=== PATIENT | female | born 1965 | race American Indian/Alaskan Native ===

== ENCOUNTER 2023-04-27 09:45 | Outpatient (REF) | payer OTHER, SELFPAY ==
--- NOTE | ~2023-04-27 | XR_ITS ---
EXAMINATION: XR KNEE, RIGHT XR KNEE AP STANDING CLINICAL INFORMATION: Pain. COMPARISON: Radiographs dated 11/05/2018. TECHNIQUE: Lateral and axial views of the right knee were obtained. AP bilateral standing view of the knees was obtained. FINDINGS: The lateral and medial joint space compartments of the right knee are well-maintained. The right patellofemoral compartment shows mild narrowing laterally. There is mild peripheral osteophyte formation of the medial and patellofemoral joint space compartments. There is mild to moderate narrowing of the medial joint space compartment of the left knee, with peripheral osteophyte formation. The lateral joint space compartment is well-maintained. No fracture or dislocation is seen. There is no right knee joint effusion. No significant varus or valgus configuration is seen bilaterally. XR/XR knee standing BI IMPRESSION: 1. There is mild osteoarthritic change of the medial and patellofemoral joint space compartments of the right knee. 2. There is mild to moderate osteoarthritic change of the medial joint space compartment of the left knee. 3. No fracture, dislocation or joint effusion is noted. 4. There is no significant varus or valgus configuration noted bilaterally.
--- NOTE | ~2023-04-27 | XR_ITS ---
EXAMINATION: XR KNEE, RIGHT XR KNEE AP STANDING CLINICAL INFORMATION: Pain. COMPARISON: Radiographs dated 11/05/2018. TECHNIQUE: Lateral and axial views of the right knee were obtained. AP bilateral standing view of the knees was obtained. FINDINGS: The lateral and medial joint space compartments of the right knee are well-maintained. The right patellofemoral compartment shows mild narrowing laterally. There is mild peripheral osteophyte formation of the medial and patellofemoral joint space compartments. There is mild to moderate narrowing of the medial joint space compartment of the left knee, with peripheral osteophyte formation. The lateral joint space compartment is well-maintained. No fracture or dislocation is seen. There is no right knee joint effusion. No significant varus or valgus configuration is seen bilaterally. XR/XR knee RT 2V IMPRESSION: 1. There is mild osteoarthritic change of the medial and patellofemoral joint space compartments of the right knee. 2. There is mild to moderate osteoarthritic change of the medial joint space compartment of the left knee. 3. No fracture, dislocation or joint effusion is noted. 4. There is no significant varus or valgus configuration noted bilaterally.
== END 2023-04-27 09:46 | disposition home or self-care (01) ==
LOC: HO.HOSX 09:45
PROVIDERS: Visit Provider Orthopaedic Surgery
DX: M23.91 Unspecified internal derangement of right knee (principal)
CPT/HCPCS: 73560; 73565; 99202

== ENCOUNTER 2023-04-27 14:26 | Outpatient (AMB) | payer OTHER, SELFPAY ==
--- NOTE | 2023-04-27 14:27 | MHC.OFFVIS ---
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 Patient reports that she has had pain for quite vaibhav time, denies injury. She has not tried PT, injections or surgery. 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 It started 2-3 months ago. She describes pain with twisting and with dynamic activities that is medial and sharp. [facility] Surgical History (Updated 04/27/23 @ 14:44 by Scarlett Landry CMA) History of bunionectomy of left great toe Hx of abdominoplasty H/O thumb surgery H/O left knee surgery Social History (Updated 04/27/23 @ 14:44 by Scarlett Landry CMA) Current occupational status: employed Current occupation: Administrative Physical Exam Extrem Other: 0-130 TTP medial joint line + Medial Steinmen's Results Reviewed Results Reviewed: I personally reviewed relevant radiographs. Right knee with mild medial joint decrease Left knee medial compartment moderate OA Assessment & Plan Assessment & Plan (1) Internal derangement of right knee: Code(s): M23.91 - Unspecified internal derangement of right knee Plan: Sharp medial sided thom nwith twisting that includes the sensation of catching and has been present for 3 months. She is unable to return to her normal activities. I recommend MRI to assess. Orders: Orders XR knee RT 2V 04/27/23 M25.569 - Pain in unspecified knee MR knee RT wo con 04/27/23 M23.91 - Unspecified internal derangement of right knee XR knee standing BI 04/27/23 M25.569 - Pain in unspecified knee Coding Level of Care Code New Pt Level 4 (38986) Diagnoses Internal derangement of right knee M23.91
== END 2023-04-27 14:50 | disposition home or self-care (01) ==
PROVIDERS: PCP Internal Medicine; Visit Provider Orthopaedic Surgery
DX: M23.91 Unspecified internal derangement of right knee (principal)
CPT/HCPCS: 99203

== ENCOUNTER 2023-06-04 08:31 | Outpatient (AMB) | payer OTHER, SELFPAY ==
--- NOTE | 2023-06-03 13:34 | A.OFFVIS_ITS ---
Intake Intake Visit Reasons: ov- MRI review of right knee Intake Note: Mely is a 57 year old female who presents today for an MRI review of the right knee. Patient reports that she is feeling pain that has not improved. Allergies morphine Allergy (Unknown, Verified 06/04/23 08:36) Hives Sulfa (Sulfonamide Antibiotics) Allergy (Unknown, Verified 06/04/23 08:36) Anaphylaxis HPI ov- MRI review of right knee HPI Details Mely is a 57 year old woman who returns for an MRI review of her right knee pain. She continues to complain of catching and pain in the medial aspect of her knee. She describes pain with twisting and dynamic activities that sharp. Her pain has been present for ~4 months now, and she feels limited in her ADLs. [facility] Surgical History History of bunionectomy of left great toe Hx of abdominoplasty H/O thumb surgery H/O left knee surgery Social History Current occupational status: employed Current occupation: Administrative Review of Systems Const All systems reviewed & are unremarkable except as noted in HPI and below Physical Exam Const General: no acute distress, alert and awake Orientation/consciousness: patient oriented x3 HEENT Head: Yes normocephalic and Yes atraumatic Mouth: moist mucous membranes Eyes General: appearance normal, both eyes and all related structures EOM: EOMs intact bilaterally Chest Other: no audible wheezing. Resp Other: No audible wheezing Effort & Inspection: normal respiratory effort and able to speak in complete sentences Cardio Other: Radial pulse palpable with no rythmic abnormalities Jugular venous distension: no JVD Back/Spine/Pelvis Cervical Spine: normal cervical lordosis Skin General skin exam: turgor normal Rashes: no rashes Neuro General: patient oriented x3 Extrem Other: No effusion FUll ROM + medial Steinmen's TTP medial joint line Psych Appearance: grossly normal Mental Status: mental status grossly normal Speech and movement: Normal speech and movement present Affect: normal affect Attitude: cooperative Results Reviewed Results Reviewed: Tear of the posterior horn of the medial meniscus Mild tricompartmental OA Assessment & Plan Assessment & Plan (1) Tear of medial meniscus of right knee: Code(s): S83.241A - Other tear of medial meniscus, current injury, right knee, initial encounter Plan: This is a 57 yo F with an acute tear of the right medial meniscus. She has been symptomatic for ~4 months. She describes medial joint line pain worse with twisting, sleeping on her side and at the initiation of motion. She is unable to get through her day without pain. I have reviewed her MRI and I recommend right knee arthroscopy. I explained the surgery and the I discussed the risks benefits and alternatives including but not limited to the risk of pain, infection, stiffness, need for further surgery as well as potential medical complications. I described the possibility that her arthritis is more significant than it appears on imaging and that this can prolong and limit full recovery. She expressed understanding and we will proceed forward accordingly. Plan Prepared for Israel Mendes MD by Baldo Estrella, medical esthetician, on 06/04/23 at 8:37 AM, EST. Coding Level of Care Code Est Pt Level 4 (50324) Diagnoses Tear of medial meniscus of right knee S83.241A
== END 2023-06-04 08:59 | disposition home or self-care (01) ==
PROVIDERS: PCP Internal Medicine; Visit Provider Orthopaedic Surgery
DX: S83.241A Other tear of medial meniscus, current injury, right knee, initial encounter (principal)
CPT/HCPCS: 99214

== ENCOUNTER → 2023-06-04 08:31 | Outpatient (BNVA) | payer OTHER, SELFPAY | PROVIDERS: PCP Internal Medicine; Visit Provider Orthopaedic Surgery | DX: S83.241D Other tear of medial meniscus, current injury, right knee, subsequent encounter (principal) | CPT/HCPCS: 99212 ==

== ENCOUNTER 2023-07-09 11:01 | Outpatient (AMB) | payer OTHER, SELFPAY ==
--- NOTE | 2023-07-09 11:11 | A.OFFVIS_ITS ---
Intake Intake Visit Reasons: Preop RT Knee 07/15/23 NE Intake Note: Mely is a 57 year old female who presents today for a pre op appointment for her right knee , 07/15/23 NE. Allergies morphine Allergy (Unknown, Verified 07/09/23 11:11) Hives Sulfa (Sulfonamide Antibiotics) Allergy (Unknown, Verified 07/09/23 11:11) Anaphylaxis HPI Preop RT Knee 07/15/23 NE HPI Details 57-year-old female who presents in the [facility] today for her preoperative history and physical exam prior to a right knee arthroscopy to be performed on 07/15/[address] Israel Mendes. Patient has an allergy history, as follows: -Morphine; hives -Sulfa; anaphylaxis Patient is not currently taking any medication. Patient has no significant medical history. 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[facility] Surgical History History of bunionectomy of left great toe Hx of abdominoplasty H/O thumb surgery H/O left knee surgery Social History Current occupational status: employed Current occupation: Administrative Review of Systems Const All systems reviewed & are unremarkable except as noted in HPI and below Physical Exam Const General: cooperative, healthy appearing and no acute distress Orientation/consciousness: patient oriented x3 HEENT Head: Yes normocephalic and Yes atraumatic Mouth: moist mucous membranes Eyes General: appearance normal, both eyes and all related structures EOM: EOMs intact bilaterally Chest Other: no audible wheezing. Resp Other: No audible wheezing Effort & Inspection: normal respiratory effort and able to speak in complete sentences Cardio Other: Radial pulse palpable with no rythmic abnormalities Jugular venous distension: no JVD Rate: regular rate Peripheral pulses: Peripheral pulses 2+ throughout GI Palpation (GI): Soft to palpation Back/Spine/Pelvis Cervical Spine: normal cervical lordosis Skin General skin exam: turgor normal Lesions: no lesions Rashes: no rashes Neuro General: patient oriented x3 Extrem Other: Right knee: Skin is clean and intact. No effusion FUll ROM + medial Steinmen's TTP medial joint line Psych Appearance: grossly normal Mental Status: mental status grossly normal Speech and movement: Normal speech and movement present Affect: normal affect Attitude: cooperative Assessment & Plan Assessment & Plan (1) Tear of medial meniscus of right knee: Code(s): S83.241A - Other tear of medial meniscus, current injury, right knee, initial encounter Qualifiers: Encounter type: subsequent encounter Meniscus tear of knee type: unspecified type Tear current or old: current Qualified Code(s): S83.241D - Other tear of medial meniscus, current injury, right knee, subsequent encounter Plan Ms. Salcido is a 57-year-old female who presents in the office today for her preoperative history and physical exam prior to a right knee arthroscopy to be performed on 07/15/[address] Israel Mendes. Patient has an allergy history, as follows: -Morphine; hives -Sulfa; anaphylaxis Patient is not currently taking any medication. Patient has no significant medical history. Patient has a surgical history, as follows: -Hx of bunionectomy of left great toe -Hx of abdominoplasty -Hx of right thumb surgery -Hx of left knee surgery Patient has a social history, as follows: -Employment: Administrative I discussed in detail the procedure and what to expect pre and post operatively. We discussed the risks, benefits and alternatives to the surgery as well as the rehabilitation course. The risks; which include, but are not limited to infection, bleeding, nerve injury, ongoing pain, swelling, and stiffness, perioperative risk of injury to bones and soft tissues, and blood clots. I have answered all questions and with their understanding they have consented to move forward with a right knee arthroscopy to be performed on 07/15/[address] Israel Mendes. Post operative medications was sent to the pharmacy, hydrocodone-acetaminophen 5-325 mg PO Q8H PRN, quantity 21 tabs for 7 days, while in the office today. I also sent her a scopalamine patch from preoperative use to prevent nausea. The patient was instructed that she should obtain the prescription prior to surgery but should not consume until after the procedure; as these should only be taken for post operative pain management. Should the patient take these medications prior to surgery a refill will not be sent to the pharmacy until their scheduled refill date. Follow up will be at the post operative appointment on 07/23/2023 at 3:00 pm, or sooner if needed. Kishor is a friend that will be driving her to and from surgery [phone] Medications: New hydrocodone-acetaminophen 5-325 mg Partial Fill upon patient request. 1 tab PO Q8H 7 days PRN 21 tabs 0RF pain scopolamine base 1 patch transdermal Q72H PRN 4 ea 0RF motion sickness Patient Instructions: Scribed by Dee Dumas ophthalmic medical technologist, for Courtney Cordon PA-C on 07/09/2023 at 11:04 am, EST. Coding Level of Care Code Global (11794) Diagnoses Tear of medial meniscus of right knee, current, unspecified tear type, subsequent encounter S83.241D Encounter type: subsequent encounter Meniscus tear of knee type: unspecified type Tear current or old: current
== END 2023-07-09 11:45 | disposition home or self-care (01) ==
PROVIDERS: PCP Internal Medicine; Visit Provider Physician Assistant
DX: S83.241D Other tear of medial meniscus, current injury, right knee, subsequent encounter (principal)
CPT/HCPCS: 99024

== ENCOUNTER → 2023-07-09 11:01 | Outpatient (BNVA) | payer OTHER, SELFPAY | PROVIDERS: PCP Internal Medicine; Visit Provider Physician Assistant | DX: Z01.818 Encounter for other preprocedural examination (principal); S83.241A Other tear of medial meniscus, current injury, right knee, initial encounter | CPT/HCPCS: 99212 ==

== ENCOUNTER 2023-07-15 05:46 | Day surgery (SDC) | payer OTHER, SELFPAY ==
--- NOTE | 2023-07-14 08:42 | P.CONAN_ITS ---
Documented by User: Faviola Harvey NP 07/14/23 08:43 HPI - Anesthesia Eval Consult details Narrative: 57yo F for Right Knee Arthroscopy No significant PMHx provided by ortho [facility] Active Problems Active Problems: All Active Problems (Updated 07/09/23 @ 11:18 by Dee Dumas) Tear of medial meniscus of right knee (Acute) Internal derangement of right knee (Acute) Past Medical History Medical History No pertinent past medical history Surgical History Surgical History Hx of section History of bunionectomy of left great toe Hx of abdominoplasty H/O thumb surgery H/O left knee surgery Social History Social History Patient Tobacco Use Status: Former Tobacco user Quit Date: 26 YRS AGO Use of substances other than those prescribed or required for medical reasons: No Are you DNR?: No Advance Directives: No Advance Directives Information Provided: Yes Current occupational status: employed Current occupation: Administrative Meds Allergies Allergy/AdvReac Type Severity Reaction Status Date / Time morphine Allergy Unknown Hives Verified 07/15/23 06:06 Sulfa (Sulfonamide Allergy Unknown Anaphylaxis Verified 07/15/23 06:06 Antibiotics) Home Medications Medication Instructions Recorded Confirmed Last Taken Type Vitamin B-12 200 mg PO DAILY 07/15/23 07/15/23 Unknown History Vitamin D3 200 mg PO DAILY 07/15/23 07/15/23 Unknown History Assessment and Plan Assessment Anesthesia Assessment: Chart Reviewed Documented by User: Alber Hendrickson MD 07/15/23 07:37 [facility] Past Medical History Medical History No pertinent past medical history Family History Family history of problems with anesthesia: No Surgical History Surgical History Hx of section History of bunionectomy of left great toe Hx of abdominoplasty H/O thumb surgery H/O left knee surgery History of Problems with Anesthesia: No Social History Social History Patient Tobacco Use Status: Former Tobacco user Quit Date: 26 YRS AGO Use of substances other than those prescribed or required for medical reasons: No Are you DNR?: No Advance Directives: No Advance Directives Information Provided: Yes Current occupational status: employed Current occupation: Administrative Meds Allergies Allergy/AdvReac Type Severity Reaction Status Date / Time morphine Allergy Unknown Hives Verified 07/15/23 06:06 Sulfa (Sulfonamide Allergy Unknown Anaphylaxis Verified 07/15/23 06:06 Antibiotics) Home Medications Medication Instructions Recorded Confirmed Last Taken Type Vitamin B-12 200 mg PO DAILY 07/15/23 07/15/23 Unknown History Vitamin D3 200 mg PO DAILY 07/15/23 07/15/23 Unknown History Exam Airway Mallampati Class: II TM Dist: >3cm Neck ROM: Full Loose/Missing/Broken Teeth: No Heart: [id number]+[id number] Lungs: cta b/l Assessment and Plan Assessment Anesthesia Assessment: Anesthesia Plan Discussed Final Anesthetic Review Family History of Problems with Anesthesia: No History of Problems with Anesthesia: No NPO: Yes ASA Class: I Final Preanesthetic Review: No Changes in Pt Med Stat, Meds/Allgs Chart Reviewed , Consent Obtained/Reviewed and Anes Risks/Benef Reviewed Patient Risk: Low Procedure Risk: Low Assessment/Block/Sedation in SS: Assess/Block/Sedation-SS Anesthetic Plan Anesthetic Plan: GA Disposition: Standard PACU
[2023-07-15] VITALS (12 sets, daily range): BP systolic 99–145; BP diastolic 58–83; PULSE 54–66; RESP 12–16; TEMP 36.1–36.6; O2SAT 91–100; BMI 32.2
[2023-07-15] MEDS: Lactated Ringers 1,000 ML 100 ML IVCONT (06:29)
--- NOTE | 2023-07-15 07:19 | MHC.SHP ---
Pre-Procedural Eval Section A - 24 Hr Update-Section A only Date of Service: 07/15/23 The patient is an INPATIENT: No Changes since office visit: No Cold of Flu in the past 2 weeks, No New Medical Problems, No Changes in Medication and No Patient answered all questions The patient has been examined within 24 hours of the surgical procedure. The History & Physical has been completed within 30 days and I have reviewed it.: Yes Section B - Complete if H&P > 30 days Chief Complaint: Other tear of medial meniscus, current injury, rig Allergies: Allergies Allergy/AdvReac Type Severity Reaction Status Date / Time morphine Allergy Unknown Hives Verified 07/15/23 06:06 Sulfa (Sulfonamide Allergy Unknown Anaphylaxis Verified 07/15/23 06:06 Antibiotics) Plan I have reviewed the history and physical and performed a pertinent physical examination on my patient. No changes have occurred unless specified. Time Spent With Patient Time: Total time managing care of this patient today ____ minutes.
--- NOTE | 2023-07-15 08:30 | P.BOP_ITS ---
Brief Operative Note Date of Service: 07/15/23 Pre-op diagnosis: Left knee MMT Left knee mild medial compartment OA Moderate lateral compartment OA Post-op diagnosis: same Procedure: Left knee partial medial meniscectopmy and chondroplasty Surgeon: Israel Mendes MD Anesthesia: GETA and local Was an Customer Service Analyst used for this Procedure?: No Estimated blood loss (mL): 5 Tourniquet time (min): 19 IV fluids (mL): 600 Pathology: none sent Condition: stable Disposition: PACU
[2023-07-15] MEDS: fentaNYL citrate/PF 100 MCG/2 ML VIAL 25 MCG IVPUSH ×3 (08:45→09:10)
[2023-07-15] MEDS: oxyCODONE HCl Immed Release 5 MG TABLET PO (08:55)
--- NOTE | 2023-07-17 16:55 | P.OP_ITS ---
Operative Note Operative Note Date of Service: 07/15/23 Narrative: Date of Service: 07/15/23 Pre-op diagnosis: Left knee MMT Left knee mild medial compartment OA Moderate lateral compartment OA Post-op diagnosis: same Procedure: Left knee partial medial meniscectopmy and chondroplasty Surgeon: Israel Mendes MD Anesthesia: GETA and local Was an Asbestos Siding Installer used for this Procedure?: No Estimated blood loss (mL): 5 Tourniquet time (min): 19 IV fluids (mL): 600 Pathology: none sent Condition: stable Disposition: PACU Procedure in detail: Patient was brought to the operating room placed supine on the arthroscopic table and prepped and draped in standard sterile fashion. A time-out was called to identify proper site proper procedure proper surgeon and IV antibiotics per weight were administered. I began by exsanguinating the limb and insufflating tourniquet to 300 mm Hg. Then made a standard anterolateral stab incision. The knee was insufflated with water and 30 degree arthroscope was placed. There was grade 1 fibrillations of the patella but overall suprapatellar pouch and the gutters were clean. I descended into the medial compartment where I made my medial portal under direct visualization. There was obvious of complex tear of the posterior horn of the medial meniscus. The root was intact and there was grade 2 changes in the tibial plateau. A shaver was used to debride the cartilage fibrillations. I used a combination of biter shaver and cautery to re move unstable portions of the meniscus. Approximately 30% meniscal volume was removed. Once I was satisfied with this the ACL was examined and found to be intact and the lateral compartment was examined. 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 I used a shaver to debride this. The lateral meniscus was intact and normal. I then removed all instrumentation and closed the portals with skin glue. 25 mL of 2% Marcaine with epinephrine was injected into the joint and the surrounding soft tissues. Patient was then placed in sterile dressing extubated brought recovery room stable condition. There were no known complications.
== END 2023-07-15 11:01 | disposition home or self-care (01) ==
PROVIDERS: Visit Provider Orthopaedic Surgery
PROC: (CPT 29870; principal; 2023-07-15 07:30)
DX: S83.241A Other tear of medial meniscus, current injury, right knee, initial encounter (principal); M17.11 Unilateral primary osteoarthritis, right knee; M94.261 Chondromalacia, right knee; X58.XXXA Exposure to other specified factors, initial encounter; Y93.9 Activity, unspecified; Y92.9 Unspecified place or not applicable; Y99.8 Other external cause status; Z88.2 Allergy status to sulfonamides; Z88.5 Allergy status to narcotic agent; Z98.890 Other specified postprocedural states; Z87.891 Personal history of nicotine dependence
CPT/HCPCS: 29881; J0131; J0171; J0690; J1100; J2250; J2405; J2704; J2795; J3010

== ENCOUNTER → 2023-07-15 05:46 | Outpatient (BNV) | payer OTHER, SELFPAY | PROVIDERS: Visit Provider Orthopaedic Surgery | DX: S83.232A Complex tear of medial meniscus, current injury, left knee, initial encounter (principal); M17.12 Unilateral primary osteoarthritis, left knee | CPT/HCPCS: 29881 ==

== ENCOUNTER 2023-07-23 14:56 | Outpatient (AMB) | payer OTHER, SELFPAY ==
--- NOTE | 2023-07-23 15:05 | A.OFFVIS_ITS ---
Intake Intake Visit Reasons: PO RT Knee 07/15/23 NE Intake Note: Mely is a 57 year old female who presents today for a post operative appointment s/p RT Knee 07/15/23 NE. Patient reports she is having pain and has limited ROM. Allergies morphine Allergy (Unknown, Verified 07/23/23 15:06) Hives Sulfa (Sulfonamide Antibiotics) Allergy (Unknown, Verified 07/23/23 15:06) Anaphylaxis HPI PO RT Knee 07/15/23 NE HPI Details 57-year-old female who presents in the o ice today 8 days status post left knee partial medial meniscectomy and chondroplasty, which was performed on 07/15/[address] Mendes. Patient reports severe pain, like having a muscle strain in their calf. She states she has pain all around the knee. She reports increased pain with ROM. Confirms icing and using the gel pads. She confirms the use of Tylenol for the pain. [facility] Medical History No pertinent past medical history Surgical History Hx of section History of bunionectomy of left great toe Hx of abdominoplasty H/O thumb surgery H/O left knee surgery Social History Patient Tobacco Use Status: Former Tobacco user Quit Date: 26 YRS AGO Current occupational status: employed Current occupation: Administrative Review of Systems Const All systems reviewed & are unremarkable except as noted in HPI and below Physical Exam Const General: cooperative, healthy appearing and no acute distress Resp Effort & Inspection: normal respiratory effort and able to speak in complete sentences Cardio Rate: regular rate Peripheral pulses: Peripheral pulses 2+ throughout GI Palpation (GI): Soft to palpation Skin Lesions: no lesions Rashes: no rashes Extrem Other: Left knee: Incision site is clean, dry, and intact. No surrounding erythema or drainage. No signs of infection. Moderate edema. ROM is 0-90 degrees. Calf is supple and non-tender. NVI. Assessment & Plan Assessment & Plan (1) S/P left knee arthroscopy: Onset Date: ~07/15/23 Comment: left knee partial medial meniscectomy and chondroplasty NE Code(s): Z98.890 - Other specified postprocedural states Plan Ms. Salcido is a 57-year-old female who presents in the office today 8 days status post left knee partial medial meniscectomy and chondroplasty, which was performe d on 07/15/[address] Mendes. Patient reports severe pain, like having a muscle strain in their calf. She states she has pain all around the knee. She reports increased pain with ROM. Confirms icing and using the gel pads. She confirms the use of Tylenol for the pain. Patient has an appointment scheduled for PT tomorrow. Information for her PT appointment was provided to the patient while in the office today. A refill for hydrocodone-acetaminophen 5-325 mg PO Q8H PRN for pain. Follow up will be in 3-4 weeks for a ROM check, or sooner if needed. Orders: Orders PT Evaluation and Treatment Today S83.241D - Other tear of medial meniscus, current injury, right knee, subsequent encounter Medications: Refilled hydrocodone-acetaminophen 5-325 mg Partial Fill upon patient request. 1 tab PO Q8H PRN 21 tabs 0RF pain 7 days Patient Instructions: Scribed by Dee Dumas director medical economics, for Courtney Cordon PA-C on 07/23/2023 at EST. Coding Level of Care Code Global (60239) Diagnoses S/P left knee arthroscopy Z98.890
== END 2023-07-23 16:13 | disposition home or self-care (01) ==
PROVIDERS: PCP Internal Medicine; Visit Provider Physician Assistant
DX: Z98.890 Other specified postprocedural states (principal)
CPT/HCPCS: 99024

== ENCOUNTER → 2023-07-23 14:56 | Outpatient (BNVA) | payer OTHER, SELFPAY | PROVIDERS: PCP Internal Medicine; Visit Provider Physician Assistant | DX: Z98.890 Other specified postprocedural states (principal) | CPT/HCPCS: 99212 ==

== ENCOUNTER 2023-08-03 09:34 | Outpatient (REF) | payer OTHER, SELFPAY ==
--- NOTE | ~2023-08-03 | US_ITS ---
EXAMINATION: US VENOUS ULTRASOUND WITH DOPPLER LOWER EXTREMITY, RIGHT CLINICAL INFORMATION: Right knee partial meniscectomy with severe calf pain COMPARISON: None available. TECHNIQUE: Ultrasound of the deep veins is performed from the hip to the calf with compression sonography and color and pulse Doppler assessment. Spectral analysis with color-flow imaging is performed. FINDINGS: There is normal venous compression and respiratory variation and augmented flow. The visualized common femoral vein, superficial femoral vein, profunda femoral vein, popliteal vein, and the trifurcation region shows no evidence of deep venous thrombosis. There is no significant popliteal fossa cyst. The contralateral left common femoral vein appears normal. If the patient's symptoms persist, followup ultrasound in 5 days 7 days might be of value to exclude proximal propagation from a non-visualized calf vein. US/US venous duplex LE RT IMPRESSION: No DVT demonstrated in the right lower extremity.
== END 2023-08-03 09:35 | disposition home or self-care (01) ==
LOC: HO.HMGCX 09:34
PROVIDERS: PCP Internal Medicine; Visit Provider Physician Assistant
DX: S83.421D Sprain of lateral collateral ligament of right knee, subsequent encounter (principal); Z98.890 Other specified postprocedural states
CPT/HCPCS: 93971

== ENCOUNTER 2023-08-11 08:00 | Outpatient (RCR) | payer OTHER, SELFPAY ==
--- NOTE | 2023-08-03 07:54 | MHC.PT.EP ---
[facility] [place] Office [place] Office [place] Office [address] Kayla Ashton [address] [phone] F: [phone] F: [phone] F: [phone] F: [phone] Physical Therapy Plan of Care Date of Evaluation: 08/03/23 Date of Surgery: 07/15/2023 Diagnosis: R knee Assessment: Patient is a 57 year old female presenting to PT s/p R knee on 07/15/2023. She presents today with impairments in pain, ROM, and likely knee strength, and hip strength. Limited evaluation due to experiencing severe gastroc and posterior knee pain. Her surgeon's office was notified and an order for an ultrasound was placed. We will complete the evaluation once the ultrasound is completed and we are cleared to do so. 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 Pt expresses long-term goal of returning to PLOF, and is motivated to work towards this in PT. Clinical presentation today is most consistent with signs and sx associated with s/p R knee with partial medial meniesctomy and chondroplasty and pt will benefit from skilled PT 2 week x 5 weeks to address the following problems and impairments noted upon evaluation: pain, ROM, knee strength, hip strength. These problems limit the patient with the following functional activities: ambulating, stair negotiation, ADLs. The prescribed treatment plan of care is medically necessary. Co-morbidities of none were identified and taken into considerations of plan of care. Pt was educated on HEP, role of PT, prognosis, POC. Frequency and Duration: The patient will be seen 2 x week x 5 weeks Short Term Goals: Pt will demonstrate improved R knee ROM to equal B in 3 weeks. Pt will demonstrate hip MMT strength at least 4/5 in 3 weeks for improved lumbopelvic stability. Pt will demonstrate improved R knee MMT strength to 4+/5 in 3 weeks. Assistant Boys Track Coach Goals: Pt will demonstrate improved LEFI score by 9 points in 4 weeks for improved functional mobility. Pt will demonstrate improved ability to ambulate with min to no pain and good mechanics in 4 weeks for return to PLOF. Pt will demonstrate ability to negotiate stairs with min to no pain or difficulty in 4 weeks for improved access to her home. Treatment Plan: Modalities to reduce pain, spasms and effusion. Manual therapy to restore motion and function. Therapeutic exercise to improve strength and flexibility. Neuromuscular re-education for posture and balance. Therapeutic activities to return to functional activities of daily living. Electronically signed by: Nichole Sánchez, PT, DPT, ATC Please sign and return to therapist. Thank you for your referral.
--- NOTE | 2023-09-10 08:38 | MHC.PT.DC ---
[facility] [place] Office [place] Office [place] Office [address] Ashton [address] [phone] F: [phone] F: [phone] F: [phone] F: [phone] Physical Therapy Discharge Report Diagnosis: R knee Date of Surgery: 07/15/2023 Date of Evaluation: 08/03/23 Date of Discharge: 09/10/23 Treatments to Date: 2 Cancellations to Date: 2 No Shows to Date: 1 Discharge Status: Visit Non-compliance Discharge Summary: Pt no showed her last scheduled appointment and has not returned in >30 days and therefore to be d/c. Electronically signed by: Nichole Sánchez, PT, DPT, ATC Please sign and return to therapist. Thank you for your referral.
== END 2023-09-10 08:38 | disposition home or self-care (01) ==
LOC: HO.PTCHIC 08:00
PROVIDERS: Absent Provider Physician Assistant; PCP Internal Medicine; Visit Provider Orthopaedic Surgery
DX: S83.241D Other tear of medial meniscus, current injury, right knee, subsequent encounter (principal)
CPT/HCPCS: 97110; 97161

== ENCOUNTER 2023-10-02 09:04 | Outpatient (AMB) | payer OTHER, SELFPAY ==
--- NOTE | 2023-10-02 09:23 | A.OFFVIS_ITS ---
Intake Visit Reasons: PO RT Knee 07/15/23 NE Allergies morphine Allergy (Unknown, Verified 07/23/23 15:06) Hives Sulfa (Sulfonamide Antibiotics) Allergy (Unknown, Verified 07/23/23 15:06) Anaphylaxis HPI HPI PO RT Knee 07/15/23 NE: Details: 58-year-old female who presents in the office today 11 weeks status post left knee partial medial meniscectomy and chondroplasty, which was performed on 07/15/[address] Mendes. During the procedure she was found to have moderate osteoarthritis in the medial and lateral compartments. I last saw the patient in the office on 07/23/2023 when she was encouraged to continue to work with physical therapy. She was also given a refill of hydrocodone-acetaminophen 5-325 mg PO Q8H PRN for pain. While in the office today the patient reports having continued medial sided pain in the left knee accompanied by edema. PFSH Medical History No pertinent past medical history Surgical History Hx of section History of bunionectomy of left great toe Hx of abdominoplasty H/O thumb surgery H/O left knee surgery Social History Patient Tobacco Use Status: Former Tobacco user Current occupational status: employed Current occupation: Administrative Review of Systems Const All systems reviewed & are unremarkable except as noted in HPI and below Physical Exam Const General: cooperative, healthy appearing and no acute distress Resp Effort & Inspection: normal respiratory effort and able to speak in complete sentences Cardio Rate: regular rate Peripheral pulses: Peripheral pulses 2+ throughout GI Palpation (GI): Soft to palpation Skin Lesions: no lesions Rashes: no rashes Extrem Other: Left knee: Prior incision site is well approximated and completely healed. No signs of infection. Mild effusion. Edema extending down the left lower extremity to the left ankle. ROM is 0-100 degrees. NVI. Assessment & Plan Assessment & Plan (1) S/P left knee arthroscopy: Onset Date: ~07/15/23 Comment: left knee partial medial meniscectomy and chondroplasty NE Code(s): Z98.890 - Other specified postprocedural states Category: Surgical Plan Ms. Salcido is a 58-year-old female who presents in the office today 11 weeks status post left knee partial medial meniscectomy and chondroplasty, which was performed on 07/15/[address] Mendes. During the procedure she was found to have moderate osteoarthritis in the medial and lateral compartments. I last saw the patient in the office on 07/23/2023 when she was encouraged to continue to work with physical therapy. She was also given a refill of hydrocodone- acetaminophen 5-325 mg PO Q8H PRN for pain. While in the office today the patient reports having continued medial sided pain in the left knee accompanied by edema. A referral for the patient to attend physical therapy was made in the office today. A refill for hydrocodone-acetaminophen 5-325 PO Q8H PRN and a new prescription for celecoxib (Celebrex) 200 mg PO BID were sent to the pharmacy. Follow-up will be in 4-6 weeks, or sooner if needed. Medications: New celecoxib (Celebrex) 200 mg PO BID 30 days 60 caps 0RF Refilled hydrocodone-acetaminophen 5-325 mg Partial Fill upon patient request. 1 tab PO Q8H 7 days PRN 10 tabs 0RF pain Patient Instructions: Scribed by Dee Dumas director medical economics, for Courtney Cordon PA-C on 10/02/2023 at 9:09 am, EST. Coding Level of Care Code Global (83610) Diagnoses S/P left knee arthroscopy Z98.890
== END 2023-10-02 09:18 | disposition home or self-care (01) ==
PROVIDERS: PCP Internal Medicine; Visit Provider Physician Assistant
DX: Z98.890 Other specified postprocedural states (principal)
CPT/HCPCS: 99024

== ENCOUNTER → 2023-10-02 09:04 | Outpatient (BNVA) | payer OTHER, SELFPAY | PROVIDERS: PCP Internal Medicine; Visit Provider Physician Assistant | DX: Z47.89 Encounter for other orthopedic aftercare (principal); Z98.890 Other specified postprocedural states | CPT/HCPCS: 99212 ==

== ENCOUNTER 2024-03-29 10:03 | Outpatient (AMB) | payer OTHER, SELFPAY ==
--- NOTE | 2024-03-29 10:27 | A.OFFVIS_ITS ---
Intake Visit Reasons: OV-Left knee pain Intake Note: Mely is a 58 year old female who presents to the office today for Left knee pain. Patient had left knee on 07/16/23. At last visit pt was referred to PT and given Celebrex. Patient states that she has gone to PT but feels like her pain got worse. She mentions that both of her knees hurt but the left knee is worse. Allergies morphine Allergy (Unknown, Verified 07/23/23 15:06) Hives Sulfa (Sulfonamide Antibiotics) Allergy (Unknown, Verified 07/23/23 15:06) Anaphylaxis HPI HPI OV-Left knee pain: Details: 58-year-old female who presents in the office today for an evaluation of bilateral knee pain. I last saw the patient in the office on 10/02/23 for 11 weeks status post right knee partial medial meniscectomy and chondroplasty, which was performed on 07/15/[address] Mendes. She was referred to physical therapy at that time and a prescription for celecoxib 200 mg PO BID was sent to the pharmacy. A refill for hydrocodone-acetaminophen 5-325 PO Q8H PRN was also provided during that encounter. While in the office today, the patient reports bilateral knee pain, left knee worse than the right knee. She mentions attending the physical therapy session; however, she feels her pain worsens with PT. [facility] Medical History No pertinent past medical history Surgical History Hx of section History of bunionectomy of left great toe Hx of abdominoplasty H/O thumb surgery H/O left knee surgery Social History Patient Tobacco Use Status: Former Tobacco user Current occupational status: employed Current occupation: Administrative Review of Systems Const All systems reviewed & are unremarkable except as noted in HPI and below Physical Exam Const General: cooperative, healthy appearing and no acute distress Resp Effort & Inspection: normal respiratory effort and able to speak in complete sentences Cardio Rate: regular rate Peripheral pulses: Peripheral pulses 2+ throughout GI Palpation (GI): Soft to palpation Skin Lesions: no lesions Rashes: no rashes Extrem Other: Right knee: Normal to inspection. No ecchymosis, erythema, or joint effusion. Pain is located in the anterior knee and runs across medial and lateral joint lines. No tenderness to palpation along the medial or lateral joint lines. Full knee extension and flexion. Crepitus felt with ROM. NVI. Left knee: Normal to inspection. No ecchymosis, erythema, or joint effusion. Pain is located medially. Tenderness to palpation along the medial joint line. No tenderness to palpation along the lateral joint lines. Full knee extension and flexion. Crepitus felt with ROM. NVI. Assessment & Plan Assessment & Plan (1) S/P right knee arthroscopy: Code(s): Z98.890 - Other specified postprocedural states Category: Surgical (2) Tear of medial meniscus of right knee: Code(s): S83.241A - Other tear of medial meniscus, current injury, right knee, initial encounter Category: Medical Qualifiers: Encounter type: subsequent encounter Meniscus tear of knee type: unspecified type Tear current or old: current Qualified Code(s): S83.241D - Other tear of medial meniscus, current injury, right knee, subsequent encounter (3) Internal derangement of right knee: Code(s): M23.91 - Unspecified internal derangement of right knee Category: Medical Plan Ms. Salcido is a 58-year-old female who presents in the office today for an evaluation of bilateral knee pain. I last saw the patient in the office on 10/02/23 for 11 weeks status post right knee partial medial meniscectomy and chondroplasty, which was performed on 07/15/[address] Mendes. She was referred to physical therapy at that time and a prescription for celecoxib 200 mg PO BID was sent to the pharmacy. A refill for hydrocodone-acetaminophen 5-325 PO Q8H PRN was also provided during that encounter. While in the office today, the patient reports bilateral knee pain, left knee worse than the right knee. She mentions attending the physical therapy session; however, she feels her pain worsens with PT. The patient has tried and failed cortisone injection, physical therapy and has a prior history of right knee arthroscopy. We discussed the role of gel injection and the patient would like to proceed with the option. The office will petition the insurance [employer] for gel injection. Follow-up will be pending gel injection approval or denial, or sooner if needed. Orders: Orders XR knee RT 1V Today M25.569 - Pain in unspecified knee XR knee LT 3V Today M25.569 - Pain in unspecified knee Patient Instructions: Scribed by Katie Longoria, medical sales specialist, for Courtney Cordon PA-C on 03/29/24 at 11:17 am EST. Coding Level of Care Code Est Pt Level 3 (26716) Diagnoses S/P right knee arthroscopy Z98.890 Tear of medial meniscus of right knee, current, unspecified tear type, subsequent encounter S83.241D Encounter type: subsequent encounter Meniscus tear of knee type: unspecified type Tear current or old: current Internal derangement of right knee M23.91
== END 2024-03-29 10:42 | disposition home or self-care (01) ==
PROVIDERS: PCP Internal Medicine; Visit Provider Physician Assistant
DX: S83.241D Other tear of medial meniscus, current injury, right knee, subsequent encounter (principal); M23.91 Unspecified internal derangement of right knee
CPT/HCPCS: 99213

== ENCOUNTER 2024-03-29 11:18 | Outpatient (REF) | payer OTHER, SELFPAY | END 2024-03-29 11:19 | disposition home or self-care (01) | LOC: HO.HOSX 11:18 | PROVIDERS: Visit Provider Physician Assistant | DX: M25.561 Pain in right knee (principal); M25.562 Pain in left knee; Z98.890 Other specified postprocedural states; S83.241D Other tear of medial meniscus, current injury, right knee, subsequent encounter; M23.91 Unspecified internal derangement of right knee | CPT/HCPCS: 73560; 73562; 99212 ==

== ENCOUNTER 2024-06-17 09:11 | Outpatient (AMB) | payer OTHER, SELFPAY ==
--- NOTE | 2024-06-17 09:16 | A.OFFVIS_ITS ---
Intake Visit Reasons: right knee Euflexxa gel injection #1 Intake Note: Mely is a 58 year old female who presents today for her right knee Euflexxa gel injection #1. Allergies morphine Allergy (Unknown, Verified 06/17/24 09:24) Hives Sulfa (Sulfonamide Antibiotics) Allergy (Unknown, Verified 06/17/24 09:24) Anaphylaxis HPI HPI right knee Euflexxa gel injection #1: Details: Ms. Salcido is a 58-year-old female who presents to the office today for right knee Euflexxa 1. ON LICENSE OF [facility] Medical History No pertinent past medical history Surgical History Hx of section History of bunionectomy of left great toe Hx of abdominoplasty H/O thumb surgery H/O left knee surgery Social History Patient Tobacco Use Status: Former Tobacco user Current occupational status: employed Current occupation: Administrative Review of Systems Const All systems reviewed & are unremarkable except as noted in HPI and below Physical Exam Const General: cooperative, healthy appearing and no acute distress Resp Effort & Inspection: normal respiratory effort and able to speak in complete sentences Cardio Rate: regular rate Peripheral pulses: Peripheral pulses 2+ throughout GI Palpation (GI): Soft to palpation Skin Lesions: no lesions Rashes: no rashes Extrem Other: Right knee: Normal to inspection. No ecchymosis, erythema, or joint effusion. Pain is located in the anterior knee and runs across medial and lateral joint lines. No tenderness to palpation along the medial or lateral joint lines. Full knee extension and flexion. Crepitus felt with ROM. NVI. Office Procedures AMB Joint Injection/Aspiration Joint Injection/Aspiration Primary Site: right knee Prep: site was prepped using aseptic technique, ethochloride spray was applied and injection warnings given Injected: in the joint (Euflexxa #1.) Approach Used: anterolateral Procedure: The patient tolerated the procedure well, but had some pain with the injection and there was some relief with the local anesthesia Coding 23610 - Large joint Procedure code (CPT) selection complete Assessment & Plan Assessment & Plan (1) Internal derangement of right knee: Code(s): M23.91 - Unspecified internal derangement of right knee Category: Medical Plan The patient was offered the Euflexxa #1 injection in the right knee. The patient was explained the risks, benefits, and alternatives to receiving this injection. After receiving consent for the injection, the patient had the procedure done while in the office today. The patient tolerated the procedure well with no complications. Follow-up will be 1 week for Euflexxa #2., or sooner if needed Coding Level of Care Code Procedure Only Diagnoses Internal derangement of right knee M23.91 CPT Codes Coding - 67965 Large joint: 22183 - Large joint ([id number])
--- OUTSIDE RECORDS SUMMARY | 2024-06-17 09:54 | XMS_ITS | Encounter Summary ---
Author Organization [facility] Address [address] [place] [address] Care Team Providers Care Kiln Mechanic Name Role Phone Destiny Negro MD Primary Care Provider Patrick gaming Encounter Details Date Type Department Care Team Description 07/09/2023 Tax Preparer Report Medical Records [address] [place] [address] Orthopedics, [address] [place] [address] Social History Tobacco Use Types Packs/Day Years Used Date Smoking Tobacco: Former Cigarettes 1 Q uit: 08/08/2002 Smokeless Tobacco: Never Alcohol Use Standard Drinks/Week Comments Yes 0 (1 standard drink = 0.6 oz pur e alcohol) 2-3 drinks per month Sex Assigned at Date Recorded Female 03/09/2023 1:[address] Job Start Date Occupation Industry Not on file Not on file Not on file documented as of this encounter Plan of Treatment Not on file documented as of this encounter Visit Diagnoses Not on filedocumented in this encounter Care Teams Kiln Mechanic Relationship Specialty Start Date End Date Destiny Negro MD PCP - General Family Practice 10/15/21 documented as of this encounter
--- OUTSIDE RECORDS SUMMARY | 2024-06-17 09:54 | XMS_ITS | Encounter Summary ---
Author Organization [facility] Address [address] [place] [address] Care Team Providers Care Thermite Welder Name Role Phone Armando Herman MD Primary Care Provider Unavail able Destiny Negro MD Primary Care Provider Patrick gaming Encounter Details Date Type Department Care Team Description 08/01/2015 Release of Information Medical Records [address] [place] [address] Abstract, Provider Social History Tobacco Use Types Packs/Day Years Used Date Smoking Tobacco: Former Cigarettes 1 Q uit: 08/08/2002 Smokeless Tobacco: Never Alcohol Use Standard Drinks/Week Comments Not Asked 0 (1 standard drink = 0.6 oz pur e alcohol) Sex Assigned at Date Recorded Female 03/09/2023 1:[address] Job Start Date Occupation Industry Not on file Not on file Not on file documented as of this encounter Plan of Treatment Not on file documented as of this encounter Visit Diagnoses Not on filedocumented in this encounter Care Teams Thermite Welder Relationship Specialty Start Date End Date Armando Herman MD PCP - General Internal Medicine 10/10/11 10/14/21 Destiny Negro MD PCP - General Family Practice 10/15/21 documented as of this encounter
--- OUTSIDE RECORDS SUMMARY | 2024-06-17 09:54 | XMS_ITS | Encounter Summary ---
Author Organization [facility] Address [address] [place] [address] Care Team Providers Care Welding Engineer Name Role Phone Destiny Negro MD Primary Care Provider Patrick gaming Encounter Details Date Type Department Care Team Description 07/23/2023 Pharmacists Report Medical Records [address] [place] [address] Courtney Cordon PA-C Social History Tobacco Use Types Packs/Day Years [...] on filedocumented in this encounter Care Teams Welding Engineer Relationship Specialty Start Date End Date Destiny Negro MD PCP - General Family Practice 10/15/21 documented as of this encounter
--- OUTSIDE RECORDS SUMMARY | 2024-06-17 09:54 | XMS_ITS | Encounter Summary ---
Author Organization [facility] Address [address] [place] [address] Care Team Providers Care Excavator Operator Name Role Phone Armando Herman MD Primary Care Provider Destiny Bashir MD Primary Care Provider Patrick gaming Reason for Visit * Reason Onset Date Comments Mychart Rx Refill 07/30/2012 Encounter Details Date Type Department Care Team Description 07/30/2012 Refill Adult Medicine [address] [address] Corinne Tobar PA-C Mychart Rx Refill Social History Tobacco Use Types Packs/Day Years Used Date Smoking Tobacco: Never Smokeless Tobacco: Never Alcohol Use Standard Drinks/Week Comments Not Asked 0 (1 standard drink = 0.6 oz pur e alcohol) Sex Assigned at Date Recorded Female 03/09/2023 1:[address] Job Start Date Occupation Industry Not on file Not on file Not on file documented as of this encounter Miscellaneous Notes * Telephone Encounter - Argentina Collazo M.A. - 08/02/2012 1:08 PM EDT Left message for pt to call the office * Telephone Encounter - Argentina Collazo M.A. - 07/30/2012 1:33 PM EDT Rx faxed Left message for pt to call the office/msg also sent via [employer] to call the office Will need CSC before next refill * Telephone Encounter - Armando Herman MD - 07/30/2012 1:09 PM EDT Will need to sign a CSC to get future tramadol rxs * Telephone Encounter - Bee Villegas L.P.N. - 07/30/2012 1:03 PM EDT STONE 06/21/12 Not on contract. Last refill on Tramadol 50 mg 1 every evening was 04/12/12 for #30. Component Value Date NA 139 11/04/2011 K 4.1 11/04/2011 CO2 26.1 11/04/2011 CL 105 11/04/2011 BUN 14 11/04/2011 CREAT 0.9 11/04/2011 GLU 85 11/04/2011 CA 9.5 11/04/2011 GFR >60 11/04/2011 * Telephone Encounter - Bee Villegas L.P.NUrsula - 07/30/2012 1:02 PM EDTFrom: BETHANY PINEDO To: Corinne Tobar PA-C Sent: ThuJul 30, 2012 12:11 PM Subject: Medication Renewal Request Original authorizing provider: LEXI Campuzano would like a refill of the following medications: tramadol (ULTRAM) 50 MG tablet [Corinne Tobar PA-C] Preferred pharmacy: [id number] Comment: documented in this encounter Plan of Treatment Not on file documented as of this encounter Visit Diagnoses Not on filedocumented in this encounter Care Teams Excavator Operator Relationship Specialty Start Date End Date Armando Herman MD PCP - General Internal Medicine 10/10/11 10/14/21 Destiny Negro MD PCP - General Family Practice 10/15/21 documented as of this encounter
--- OUTSIDE RECORDS SUMMARY | 2024-06-17 09:54 | XMS_ITS | Encounter Summary ---
Author Organization [facility] Address [address] [place] [address] Care Team Providers Care Airplane Tube Builder Name Role Phone Destiny Negro MD Primary Care Provider Patrick gaming Encounter Details Date Type Department Care Team Description 06/21/2023 [facility] Medical Records [address] [place] [id number] [place] [address] Social History Tobacco Use Types Packs/Day Years [...] on filedocumented in this encounter Care Teams Airplane Tube Builder Relationship Specialty Start Date End Date Destiny Negro MD PCP - General Family Practice 10/15/21 documented as of this encounter
--- OUTSIDE RECORDS SUMMARY | 2024-06-17 09:54 | XMS_ITS | Encounter Summary ---
Author Organization [facility] Address [address] [place] [address] Care Team Providers Care Armature And Rotor Winder Name Role Phone Armando Herman MD Primary Care Provider Unavail able Destiny Negro MD Primary Care Provider Patrick gaming Encounter Details Date Type Department Care Team Description 09/27/2015 BUNDLE WRAPPER/[employer] Report Medical Records [address] [place] [address] Abstract, Provider Social History Tobacco Use Types [...] on filedocumented in this encounter Care Teams Armature And Rotor Winder Relationship Specialty Start Date End Date Armando Herman MD PCP - General Internal Medicine 10/10/11 10/14/21 Destiny Negro MD PCP - General Family Practice 10/15/21 documented as of this encounter
--- OUTSIDE RECORDS SUMMARY | 2024-06-17 09:54 | XMS_ITS | Encounter Summary ---
Author Organization [facility] Address [address] [place] [address] Care Team Providers Care Clinical Program Director Name Role Phone Armando Herman MD Primary Care Provider Unavail able Destiny Negro MD Primary Care Provider Patrick gaming Encounter Details Date Type Department Care Team Description 03/16/2012 Release of Information Medical Records [address] [place] [address] Abstract, Provider Social History Tobacco Use Types [...] on filedocumented in this encounter Care Teams Clinical Program Director Relationship Specialty Start Date End Date Armando Herman MD PCP - General Internal Medicine 10/10/11 10/14/21 Destiny Negro MD PCP - General Family Practice 10/15/21 documented as of this encounter
--- OUTSIDE RECORDS SUMMARY | 2024-06-17 09:54 | XMS_ITS | Encounter Summary ---
Author Organization [facility] Address [address] [place] [address] Care Team Providers Care Hand Fretted Instrument Maker Name Role Phone Armando Herman MD Primary Care Provider Unavail able Destiny Negro MD Primary Care Provider Patrick gaming Encounter Details Date Type Department Care Team Description 02/08/2013 Power Regulator Report Medical Records [address] [place] [address] Orthopedic, Surgeons Social History Tobacco Use Types Packs/Day Years [...] on filedocumented in this encounter Care Teams Hand Fretted Instrument Maker Relationship Specialty Start Date End Date Armando Herman MD PCP - General Internal Medicine 10/10/11 10/14/21 Destiny Negro MD PCP - General Family Practice 10/15/21 documented as of this encounter
--- OUTSIDE RECORDS SUMMARY | 2024-06-17 09:54 | XMS_ITS | Clinical Summary ---
Author Organization [facility] Address [address] [place] [address] Care Team Providers Care Travel Accommodations Rater Name Role Phone Destiny Negro MD Primary Care Provider Patrick lable Allergies Active Allergy Reactions Severity Noted Date Comments Benzalk Cl-Ciprofloxacin OTHER 10/10/2011 Rash and difficulty breathing Morphine Sulfate 10/10/2011 Sulfa Drugs 10/10/2011 Medications Medication Sig Dispensed Refills Start Date End Date Status Multiple Vitamins-Minerals (MULTI ADULT GUMMIES) Chew Tab Take 2 tablets by mouth daily. 0 Active Melatonin 3 MG Tab Take 2 tablets by mouth at bedtime. 0 Active fluticasone 50 MCG/ACT nasal spray 2 Sprays by Nasal route daily. 1 Bottle 5 06/13/2019 Active Fexofenadine HCl (MEME ALLERGY OR) Take by mouth. 0 Active Cholecalciferol (Vitamin D) 50 MCG (2000 UT) Tab Take by mouth. 0 Active Cyanocobalamin (Vitamin B 12) 500 MCG Tab Take by mouth. 0 Active Active Problems Problem Noted Date S/P foot surgery, left taili or's bunionectomy and juhi bunionectomy Dr. Sol 07/09/2018 07/14/2018 Primary osteoarthritis of right hand Family history of osteoarthritis 017 Bunion, left foot 11/14/2016 Vitamin D deficiency 11/14/2016 DDD (degenerative disc disease), lumbar 04/21/2016 Sleep disturbance 01/11/2016 Gout 04/24/2015 Overweight 06/06/2013 Resolved Problems Problem Noted Date Resolved Date Leg pain 01/30/2012 01/11/2016 Overview: Extensive negative evaluation in [place] NO ACTIVE MEDICAL PROBLEMS 11/14/201101/29 Immunizations Name Administration Dates Next Due Influenza (> 6 Months) 01/02/2012 Tdap 06/06/2013 Family History Medical History Relation Name Comments hip replacement Brother 1 Bimal No Known Problems Brother 2 Eduin Arthritis Father NM Maternal Grandfather ag e 67 Alzheimers Disease Maternal Grandmother Parkinson's Disease Maternal Grandmother Alzheimers Disease Mother CAD Mother open heart surg pete Cancer of the Colon Mother Diabetes Mother Hypertension Mother No Known Problems Sister 1 Kirsty No Known Problems Sister 2 Soha CA Breast Negative Hx CA Colon Negative Hx CA Ovarian Negative Hx CA Prostate Negative Hx Hypercholesterolemia Negative Hx Uterine Cancer Negative Hx Relation Name Status Comments Brother 1 Bimal Alive Brother 2 Eduin Alive Father Alive Maternal Grandfather Maternal Grandmother Mother Alive Paternal Grandfather Paternal Grandmother Sister 1 Kirsty Alive Sister 2 Soha Alive Social History Tobacco Use Types Packs/Day Years Used Date Smoking Tobacco: Former Cigarettes 1 Q uit: 08/08/2002 Smokeless Tobacco: Never Tobacco Cessation:Counseling Given: Not Answered Alcohol Use Standard Drinks/Week Comments Yes 0 (1 standard drink = 0.6 oz pur e alcohol) 2-3 drinks per month Sex Assigned at Date Recorded Female 03/09/2023 1:[address] Job Start Date Occupation Industry Not on file Not on file Not on file Last Filed Vital Signs Vital Sign Reading Time Taken Comments Blood Pressure 126/82 06/13/2019 2:01 PM EST Pulse 101 06/13/2019 2:01 PM EST Temperature 36 ??C (96.8 ??F) 06/13/2019 2:01 PM EST Respiratory Rate 16 06/13/2019 2:01 PM EST Oxygen Saturation 98% 06/13/2019 2:01 PM EST Inhaled Oxygen Concentration - - Weight 78.7 kg (173 lb 6.4 oz) 09/05/2022 10:03 AM EDT Height 157.5 cm (5' 2 ) 09/05/2022 10:03 AM EDT Body Mass Index 31.72 09/05/2022 10:03 AM EDT Plan of Treatment Health Maintenance Due Date Last Done Comments Covid-19 Vaccine (#1) 02/19/1966 HEPATITIS C SCREENING 1984 SHINGLES VACCINE (1 of 2) 2016 CERVICAL CANCER SCREENING 10/26/20202017, 03/11/2016, 01/08/2012 DTAP/TDAP/TD (2 - Td or Tdap) 06/06/2023 06/06/2013 INFLUENZA (#1) 2023 01/02/2012 BMI CHECK/ADVISE 04/13/2024 06/04/2023, (Completed), 09/05/2022, Additional history exists DEPRESSION SCREENING/FOLLOWUP 04/13/2024 06/04/2023 SOCIAL NEEDS SCREENING 04/13/2024 06/04/2023 MAMMOGRAM 09/14/2024 09/15/2023, 06/0 05/2022, 05/11/2018, Additional history exists BASELINE HEALTH EXAM 40-64 06/04/202506/04, 06/04/2023, 11/14/2016, Additional history exists COLON CANCER SCREENING - [place] 06/30/20262023 CHOLESTEROL SCREENING 06/04/2028 06/04/2023 , 11/14/2016, 01/07/2016, Additional history exists PNEUMOCOCCAL VACCINE FOR HIG H RISK PATIENTS (#1) 08/20/2031 Care Teams Travel Accommodations Rater Relationship Specialty Start Date End Date Destiny Negro MD PCP - General Family Practice 10/15/21
--- OUTSIDE RECORDS SUMMARY | 2024-06-17 09:54 | XMS_ITS | Encounter Summary ---
Author Organization [facility] Address [address] [place] [address] Care Team Providers Care Company Manager Name Role Phone Armando Herman MD Primary Care Provider Unavail able Destiny Negro MD Primary Care Provider Patrick gaming Encounter Details Date Type Department Care Team Description 04/16/2016 [facility] Medical Records [address] [place] [address] Abstract, Provider Social History Tobacco Use Types Packs/Day Years Used Date Smoking Tobacco: Former Cigarettes 1 Q uit: 08/08/2002 Smokeless Tobacco: Never Alcohol Use Standard Drinks/Week Comments No 0 (1 standard drink = 0.6 oz [...] on filedocumented in this encounter Care Teams Company Manager Relationship Specialty Start Date End Date Armando Herman MD PCP - General Internal Medicine 10/10/11 10/14/21 Destiny Negro MD PCP - General Family Practice 10/15/21 documented as of this encounter
--- OUTSIDE RECORDS SUMMARY | 2024-06-17 09:54 | XMS_ITS | Clinical Summary ---
[facility] Address [address] [place] [phone] Phone Care Team Providers Care Licensed Nuclear Control Room Operator Name Role Phone Destiny Negro MD Primary Care Provider [phone] Allergies Active Allergy Reactions Criticality Noted Date Comments Morphine Sulfate 10/10/2011 Other Other 10/10/2011 Benzalk Cl-Ciprofloxacin Rash and difficulty breathing Sulfa (Sulfonamide Antibiotics) 10/10/2011 Medications fluticasone propionate (FLONASE) 50 mcg/actuation nasal spray Administer 2 sprays into affected nostril(s). 0 Active fexofenadine (MEME) 60 mg tablet Take by mouth. Activ e Encounters Date Type Department Care Team Description 06/15/2024 8:52 AM EST - 06/15/2024 11:59 PM EST Hospital Encounter [facility] Ultrasound [address] [place] [address] Benign breast cyst in female, left Discharge Disposition: Home or Self Care 05/24/2024 8:47 AM EST - 05/24/2024 11:59 PM EST Hospital Encounter [facility] Ultrasound [address] [place] [address] Solitary cyst of left breast Discharge Disposition: Home or Self Care 05/24/2024 8:00 AM EST - 05/24/2024 11:59 PM EST Hospital Encounter [facility] [address] [place] [address] Solitary cyst of left breast Discharge Disposition: Home or Self Care 05/17/2024 1:30 PM EST Office Visit [facility] [address] [place] [phone] Olivia Rashid, MIMI Solitary cyst of left breast (Primary Dx) from Last 3 Months Surgical History Surgery Date Site/Laterality Comments BELT ABDOMINOPLASTY PROCEDURE: HISTORICAL TUMMY TUCK SECTION 12/31/1999 PROCEDURE: HISTORICAL KNEE ARTHROSCOPY W/ MENISCAL REPAIR 2015 Left PROCEDURE: [place] ARTHROSCOPY KNEE W/MENISCUS RPR MEDIAL/LATERAL Medical History Medical History Date Comments Overweight(278.02) 06/06/2013 DX:Overweight (278.02) Bunion, left foot 11/14/2016 DX:Bunion, lef t foot DDD (degenerative disc disea se), lumbar 04/21/2016 DX:DDD (degenerative disc di sease), lumbar Sleep disturbance 01/11/2016 DX:Sleep distu rbance Gout 04/24/2015 DX:Gout Vitamin D deficiency 11/14/2016 DX:Vitamin D deficiency Family History Medical History Relation Name Comments Other: hip replacement Brother 1 Bimal No Known Problems Brother 2 Eduin Arthritis Father Breast cancer Half-Sister paternal half sister Heart attack Maternal Grandfather ag e 67 Alzheimer's disease Maternal Grandmother Parkinson's Disease Maternal Grandmother Alzheimer's disease Mother Colon cancer Mother Coronary artery disease Mother open heart surgery Diabetes Mother Hypertension Mother No Known Problems Sister 1 Kirsty No Known Problems Sister 2 Soha Colon cancer Neg Hx Hyperlipidemia Neg Hx Ovarian cancer Neg Hx Prostate cancer Neg Hx Uterine cancer Neg Hx Relation Name Status Comments Brother 1 Bimal Alive Brother 2 Eduin Alive Father Alive Half-Sister Alive Maternal Grandfather Maternal Grandmother Mother Alive Paternal Grandfather Paternal Grandmother Sister 1 Kirsty Alive Sister 2 Soha Alive Social History Tobacco Use Types Packs/Day Years Used Date Smoking Tobacco: Former Cigarettes Q uit: 08/08/2002 Smokeless Tobacco: Never Alcohol Use Standard Drinks/Week Comments Yes 0 (1 standard drink = 0.6 oz pur e alcohol) OCC Comments No Sex and Gender Information Value Date Recorded Sex Assigned at Not on file Legal Sex Female 11:41 PM EST Gender Identity Not on file Sexual Orientation Not on file Obstetrics History Para Term AB IAB SAB Ectopic Multiple Livin g Live Births 3 3 Date Outcome GA Total Labor Labor/2nd/3rd Weight Sex Type Anes PTL Judith A1 A5 Name Clin Last Filed Vital Signs Vital Sign Reading Time Taken Comments Blood Pressure 150/76 05/17/2024 1:45 PM EST Pulse 80 05/17/2024 1:45 PM EST Temperature - - Respiratory Rate - - Oxygen Saturation - - Inhaled Oxygen Concentration - - Weight 79.4 kg (175 lb) 05/24/2024 8:30 AM EST Height 157.5 cm (5' 2 ) 05/24/2024 8:30 AM EST Body Mass Index 32.01 05/24/2024 8:30 AM EST Plan of Treatment Health Maintenance Due Date Last Done Comments Hepatitis B Vaccines (1 of 3 - 19+ 3-dose series) 1985 Pneumococcal Vaccine: 50+ Years (1 of 2 - PCV) 1985 Pneumococcal Vaccine: Pediatrics (0 to 5 Years) and At-Risk Patients (6 to 64 Years) (1 of 2 - PCV) 1985 Zoster Vaccines (1 of 2) 1985 Cervical Cancer Screening: P ap Smear 10/26/2020 10/26/2017 COVID-19 Vaccine (3 - Pfizer risk series) 11/20/2020 10/23/2020, 10/01/2020 Colorectal Cancer Screening: FIT-DNA (Cologuard) 03/16/2022 Depression Screening 03/16/2022 HIV Screening 03/16/2022 Hepatitis C Screening 03/16/2022 Social Influencers of Health Screening 03/16/2022 DTaP,Tdap,and Td Vaccines (2 - Td or Tdap) 06/06/2023 06/06/2013 Influenza Vaccine (#1) 2023 01/02/2012 Breast Cancer Screening 05/24/2026 05/24/19, 09/15/2023, 05/06/2018 HIB Vaccines Aged Out No longer eligi ble based on patient's age to complete this topic HPV Vaccines Aged Out No longer eligi ble based on patient's age to complete this topic Hepatitis A Vaccines Aged Out No long er eligible based on patient's age to complete this topic IPV Vaccines Aged Out No longer eligi ble based on patient's age to complete this topic MMR Vaccines Aged Out No longer eligi ble based on patient's age to complete this topic Meningococcal ACWY Vaccine Aged Out N o longer eligible based on patient's age to complete this topic Meningococcal B Vacine Aged Out No lo nger eligible based on patient's age to complete this topic RSV Immunization Patients Under 20 months Aged Out No longer eligible b ased on patient's age to complete this topic Varicella Vaccines Aged Out No longer eligible based on patient's age to complete this topic Procedures Procedure Name Priority Date/Time Associated Diagnosis Comments US ASP BREAST ABSCESS/HEMATOMA/BUL LA/CYST LEFT Routine 06/15/2024 10:02 AM EST Benign breast cyst in female, left US BREAST LIMITED LEFT Routine 05/24/2024 9:09 AM EST Solitary cyst of left breast MG MAMMO DIGITAL DIAGNOSTIC W GEO LEFT Routine 05/24/2024 9:04 AM EST Solitary cyst of left breast PAP SMEAR Routine 10/26/2017 from Last 3 Months or Most Recently Relevant to Health Maintenance Results * US Asp Breast Abscess/Hematoma/Bulla/Cyst Left (06/15/2024 10:02 AM EST) Anatomical Region Laterality Modality Breast Left Ultrasound 06/15/2024 3:39 PM EST Narrative 06/15/2024 3:51 PM EST EXAM: US ASP BREAST ABSCESS/HEMATOMA/BULLA/CYST LEFT EXAM DATE AND TIME: 06/15/2024 9:04 AM HISTORY: Palpable left breast lump. ??Painful cyst. ??Patient requests therapeutic aspiration. PROCEDURE: Informed consent was obtained. ??This included a discussion regarding the potential for recurrence and an understanding that this procedure may or may not significantly decrease the patient's symptoms. Pre-procedure imaging demonstrated an approximately 3.3 cm oval cyst in the 4 o'clock position 3 cm from the left nipple. Using sterile technique and lidocaine anesthesia, ultrasound-guided Cyst aspiration/drainage of the left breast was performed from a lateral approach. A 22 gauge needle was used and no specimen ??was sent for pathologic evaluation. No marker was placed. The cyst was completely drained. ??There was no residual solid component or area of wall thickening. Upon completion of the procedure, pressure was applied until hemostasis was obtained. The patient tolerated the procedure well and was discharged in good condition. PATHOLOGY RESULTS: No specimen submitted. PATHOLOGY OUTCOME: Benign RETURN TO ROUTINE FOLLOW-UP: Yes RECOMMENDATION(S): 1: Clinical correlation recommended -------- FINAL REPORT -------- Dictated By: Francisco Reyna Dictated Date: 06/15/2024 15:39 ET Assigned Physician: Francisco Reyna Reviewed and Electronically Signed By: Francisco Reyna Signed Date: 06/15/2024 15:51 ET Workstation ID: [id number] Transcribed By: Self Edit Transcribed Date: 06/15/2024 15:39 ET Procedure Note Francisco Reyna MD - 06/15/2024 EXAM: US ASP BREAST ABSCESS/HEMATOMA/BULLA/CYST LEFT EXAM DATE AND TIME: 06/15/2024 9:04 AM HISTORY: Palpable left breast lump. Painful cyst. Patient requeststherapeutic aspiration. PROCEDURE: Informed consent was obtained. This included a discussion regarding thepotential for recurrence and an understanding that this procedure may ormay not significantly decrease the patient's symptoms. Pre-procedure imaging demonstrated an approximately 3.3 cm oval cyst inthe 4 o'clock position 3 cm from the left nipple. Using sterile technique and lidocaine anesthesia, ultrasound-guided Cystaspiration/drainage of the left breast was performed from a lateralapproach. A 22 gauge needle was used and no specimen was sent for pathologicevaluation. No marker was placed. The cyst was completely drained. There was no residual solid component orarea of wall thickening. Upon completion of the procedure, pressure was applied until hemostasiswas obtained. The patient tolerated the procedure well and was discharged in goodcondition. PATHOLOGY RESULTS: No specimen submitted. PATHOLOGY OUTCOME: Benign RETURN TO ROUTINE FOLLOW-UP: Yes RECOMMENDATION(S): 1: Clinical correlation recommended -------- FINAL REPORT -------- Dictated By: Francisco Reyna Dictated Date: 06/15/2024 15:39 ET Assigned Physician: Francisco Reyna Reviewed and Electronically Signed By: Francisco Reyna Signed Date: 06/15/2024 15:51 ET Workstation ID: [id number] Transcribed By: Self Edit Transcribed Date: 06/15/2024 15:39 ET us Olivia Rashid CNM IMG US PROCEDURES Final Resu lt * US Breast Limited Left (05/24/2024 9:09 AM EST) Anatomical Region Laterality Modality Breast Left Ultrasound 05/24/2024 8:45 AM EST Impressions 05/24/2024 9:10 AM EST Benign cyst. ??If the patient desires, an aspiration can be performed with ultrasound guidance. ??Findings and recommendations were conveyed to the patient. ? BI-RADS CATEGORY: 2 - BENIGN RECOMMENDATION: Screening bilateral mammogram is recommended in 1 year. ?? -------- FINAL REPORT -------- Dictated By: EBENEZER MENDOSA Dictated Date: 05/24/2024 08:45 ET Assigned Physician: EBENEZER MENDOSA Reviewed and Electronically Signed By: EBENEZER MENDOSA Signed Date: 05/24/2024 09:10 ET Workstation ID: [id number] Transcribed By: Self Edit Transcribed Date: 05/24/2024 08:49 ET Narrative 05/24/2024 9:10 AM EST CLINICAL: 58 years old, Female, palpable concern in the left breast. ?? COMPARISON: 09/15/2023 and 09/12/2022 ?? FINDINGS: MAMMOGRAPHY TECHNIQUE: Bilateral MLO and CC views were obtained digitally with 3-D mammogram (digital breast tomosynthesis). ??Computer-aided detection was utilized in evaluation of this exam (CAD). A 3.9 cm mass is seen in the anterior left breast below and lateral to the nipple. ??The patient was referred ultrasound for further evaluation. BREAST DENSITY: B - There are scattered areas of fibroglandular density. ULTRASOUND TECHNIQUE: Targeted sonographic evaluation of the left breast was performed. A prominent anechoic cyst is identified. ??This correlate with the mammographic finding. ??The cyst measures 3.7 x 3.1 x 2.3 cm. ?? Procedure Note Ebenezer Mendosa MD - 05/24/2024 CLINICAL: 58 years old, Female, palpable concern in the left breast. COMPARISON: 09/15/2023 and 09/12/2022 FINDINGS: MAMMOGRAPHY TECHNIQUE: Bilateral MLO and CC views were obtained digitally with 3-Dmammogram (digital breast tomosynthesis). Computer-aided detection wasutilized in evaluation of this exam (CAD). A 3.9 cm mass is seen in the anterior left breast below and lateral to thenipple. The patient was referred ultrasound for further evaluation. BREAST DENSITY: B - There are scattered areas of fibroglandular density. ULTRASOUND TECHNIQUE: Targeted sonographic evaluation of the left breast wasperformed. A prominent anechoic cyst is identified. This correlate with themammographic finding. The cyst measures 3.7 x 3.1 x 2.3 cm. IMPRESSION: Benign cyst. If the patient desires, an aspiration can be performed withultrasound guidance. Findings and recommendations were conveyed to thepatient. BI-RADS CATEGORY: 2 - BENIGN RECOMMENDATION: Screening bilateral mammogram is recommended in 1 year. -------- FINAL REPORT -------- Dictated By: EBENEZER MENDOSA Dictated Date: 05/24/2024 08:45 ET Assigned Physician: EBENEZER MENDOSA Reviewed and Electronically Signed By: EBENEZER MENDOSA Signed Date: 05/24/2024 09:10 ET Workstation ID: [id number] Transcribed By: Self Edit Transcribed Date: 05/24/2024 08:49 ET us Olivia Rashid CNM IMG US PROCEDURES Final Resu lt * MG Mammo Digital Diagnostic w Geo Left (05/24/2024 9:04 AM EST) Anatomical Region Laterality Modality Breast Left Mammography 05/24/2024 8:45 AM EST Impressions 05/24/2024 9:10 AM EST Benign cyst. ??If the patient desires, an aspiration can be performed with ultrasound guidance. ??Findings and recommendations were conveyed to the patient. ? BI-RADS CATEGORY: 2 - BENIGN RECOMMENDATION: Screening bilateral mammogram is recommended in 1 year. ?? -------- FINAL REPORT -------- Dictated By: EBENEZER MENDOSA Dictated Date: 05/24/2024 08:45 ET Assigned Physician: EBENEZER MENDOSA Reviewed and Electronically Signed By: EBENEZER MENDOSA Signed Date: 05/24/2024 09:10 ET Workstation ID: [id number] Transcribed By: Self Edit Transcribed Date: 05/24/2024 08:49 ET Narrative 05/24/2024 9:10 AM EST CLINICAL: 58 years old, Female, palpable concern in the left breast. ?? COMPARISON: 09/15/2023 and 09/12/2022 ?? FINDINGS: MAMMOGRAPHY TECHNIQUE: Bilateral MLO and CC views were obtained digitally with 3-D mammogram (digital breast tomosynthesis). ??Computer-aided detection was utilized in evaluation of this exam (CAD). A 3.9 cm mass is seen in the anterior left breast below and lateral to the nipple. ??The patient was referred ultrasound for further evaluation. BREAST DENSITY: B - There are scattered areas of fibroglandular density. ULTRASOUND TECHNIQUE: Targeted sonographic evaluation of the left breast was performed. A prominent anechoic cyst is identified. ??This correlate with the mammographic finding. ??The cyst measures 3.7 x 3.1 x 2.3 cm. ?? Procedure Note Ebenezer Mendosa MD - 05/24/2024 CLINICAL: 58 years old, Female, palpable concern in the left breast. COMPARISON: 09/15/2023 and 09/12/2022 FINDINGS: MAMMOGRAPHY TECHNIQUE: Bilateral MLO and CC views were obtained digitally with 3-Dmammogram (digital breast tomosynthesis). Computer-aided detection wasutilized in evaluation of this exam (CAD). A 3.9 cm mass is seen in the anterior left breast below and lateral to thenipple. The patient was referred ultrasound for further evaluation. BREAST DENSITY: B - There are scattered areas of fibroglandular density. ULTRASOUND TECHNIQUE: Targeted sonographic evaluation of the left breast wasperformed. A prominent anechoic cyst is identified. This correlate with themammographic finding. The cyst measures 3.7 x 3.1 x 2.3 cm. IMPRESSION: Benign cyst. If the patient desires, an aspiration can be performed withultrasound guidance. Findings and recommendations were conveyed to thepatient. BI-RADS CATEGORY: 2 - BENIGN RECOMMENDATION: Screening bilateral mammogram is recommended in 1 year. -------- FINAL REPORT -------- Dictated By: EBENEZER MENDOSA Dictated Date: 05/24/2024 08:45 ET Assigned Physician: EBENEZER MENDOSA Reviewed and Electronically Signed By: EBENEZER MENDOSA Signed Date: 05/24/2024 09:10 ET Workstation ID: [id number] Transcribed By: Self Edit Transcribed Date: 05/24/2024 08:49 ET us Olivia Rashid CNM IMG BI PROCEDURES Final Resu lt * Pap smear (10/26/2017) 10/26/2017 Narrative HISTORICAL TESTING LAB RESULTING AGENCY - 10/28/2017 5:19 PM EDT [id number] THINPREP PAP, IMAGED: NEGATIVE FOR SQUAMOUS INTRAEPITHELIAL LESION AND MALIGNANCY ??. RESULT OF APTIMA HIGH RISK HPV ASSAY: ? NEGATIVE ?? (SEROTYPES 16,18,31,33,35,39,45,51,52,56,58,59,66,68) NINA BENITEZ(ASCP) (CASE ELECTRONICALLY SIGNED 10 28 2017) ADEQUACY: SATISFACTORY. ENDOCERVICAL/TRANSFORMATION ZONE COMPONENT PRESENT. SOURCE: THINPREP PAP HPV ANY DX: ??REFLEX 16 AND 18, CERVICAL, IMAGED: CLINICAL INFORMATION: HPV ANY DIAGNOSIS. HORMONES, PAP HX NEG [Z12.4] us Jeovany Mayo MD LAB CYTOLOGY ORDERABLES Final R esult HISTORICAL TESTING LAB RESULTING AGENCY from Last 3 Months or Most Recently Relevant to Health Maintenance Insurance [facility] [employer] [place] [id number] Care Teams Licensed Nuclear Control Room Operator Relationship Specialty Start Date End Date Destiny Negro MD [address] [facility] [place] [address] PCP - General 10/15/21
--- OUTSIDE RECORDS SUMMARY | 2024-06-17 09:54 | XMS_ITS | Encounter Summary ---
Author Organization [facility] Address [address] [place] [address] Care Team Providers Care Violin Teacher Name Role Phone Armando Herman MD Primary Care Provider Unavail able Destiny Negro MD Primary Care Provider Patrick gaming Encounter Details Date Type Department Care Team Description 11/18/2016 Release of Information Medical Records [address] [place] [address] Abstract, Provider Social History Tobacco Use Types [...] on filedocumented in this encounter Care Teams Violin Teacher Relationship Specialty Start Date End Date Armando Herman MD PCP - General Internal Medicine 10/10/11 10/14/21 Destiny Negro MD PCP - General Family Practice 10/15/21 documented as of this encounter
--- OUTSIDE RECORDS SUMMARY | 2024-06-17 09:54 | XMS_ITS | Encounter Summary ---
Author Organization [facility] Address [address] [place] [address] Care Team Providers Care Supervisor Chlorine Liquefaction Name Role Phone Armando Herman MD Primary Care Provider Unavail able Destiny Negro MD Primary Care Provider Patrick gaming Encounter Details Date Type Department Care Team Description 09/04/2016 SCAN Medical Records [address] [place] [address] Abstract, Provider Social History Tobacco Use Types [...] on filedocumented in this encounter Care Teams Supervisor Chlorine Liquefaction Relationship Specialty Start Date End Date Armando Herman MD PCP - General Internal Medicine 10/10/11 10/14/21 Destiny Negro MD PCP - General Family Practice 10/15/21 documented as of this encounter
--- OUTSIDE RECORDS SUMMARY | 2024-06-17 09:54 | XMS_ITS | Encounter Summary ---
Author Organization [facility] Address [address] [place] [address] Care Team Providers Care Button Spindler Name Role Phone Armando Herman MD Primary Care Provider Unavail able Destiny Negro MD Primary Care Provider Patrick gaming Encounter Details Date Type Department Care Team Description 02/01/2013 Director Traffic And Planning Report Medical Records [address] [place] [address] Yossi Keene [address] [place] [address] Social History Tobacco Use Types Packs/Day Years [...] on filedocumented in this encounter Care Teams Button Spindler Relationship Specialty Start Date End Date Armando Herman MD PCP - General Internal Medicine 10/10/11 10/14/21 Destiny Negro MD PCP - General Family Practice 10/15/21 documented as of this encounter
--- OUTSIDE RECORDS SUMMARY | 2024-06-17 09:54 | XMS_ITS | Encounter Summary ---
Author Organization [facility] Address [address] [place] [address] Care Team Providers Care Fibre Technologist Name Role Phone Armando Herman MD Primary Care Provider Destiny Bashir MD Primary Care Provider Patrick gaming Encounter Details Date Type Department Care Team Description 07/30/2016 Pt. Non Urgent Medic al Question Physiatry - [place] [address] [place] [address] Carlos Castellano DO Social History Tobacco Use Types Packs/Day Years [...] on file documented as of this encounter Progress Notes * Luda Cardenas M.A. - 07/30/2016 8:30 AM EDTFrom: Mely Salcido To: Carlos Castellano DO Sent: 07/30/2016 8:22 AM EDT Subject: Back and left leg pain I am having back and left leg pain making it difficult to walk. My activities included gardening this weekend and driving to [place] [employer] yesterday. I do not have a follow up appt with Dr. Castellano until my shot. documented in this encounter Plan of Treatment Not on file documented as of this encounter Visit Diagnoses Not on filedocumented in this encounter Care Teams Fibre Technologist Relationship Specialty Start Date End Date Armando Herman MD PCP - General Internal Medicine 10/10/11 10/14/21 Destiny Negro MD PCP - General Family Practice 10/15/21 documented as of this encounter
--- OUTSIDE RECORDS SUMMARY | 2024-06-17 09:54 | XMS_ITS | Encounter Summary ---
Author Organization [facility] Address [address] [place] [address] Care Team Providers Care Adding Machine Operator Name Role Phone Destiny Negro MD Primary Care Provider Patrick gaming Encounter Details Date Type Department Care Team Description 04/27/2023 Turkey Pinner Report Medical Records [address] [place] [address] Israel Mendes MD Social History Tobacco Use Types Packs/Day Years [...] on filedocumented in this encounter Care Teams Adding Machine Operator Relationship Specialty Start Date End Date Destiny Negro MD PCP - General Family Practice 10/15/21 documented as of this encounter
--- OUTSIDE RECORDS SUMMARY | 2024-06-17 09:54 | XMS_ITS | Encounter Summary ---
Author Organization [facility] Address [address] [place] [address] Care Team Providers Care Medical Unit Secretary Name Role Phone Armando Herman MD Primary Care Provider Destiny Bashir MD Primary Care Provider Patrick gaming Reason for Visit * Reason Onset Date Comments Medication 10/22/2016 Encounter Details Date Type Department Care Team Description 10/22/2016 Telephone Gastroenterology - [address] [address] Trent Gonazlez MD Medication Social History Tobacco Use Types Packs/Day Years [...] encounter Miscellaneous Notes * Telephone Encounter - Trent Gonzalez MD - 10/22/2016 1:12 PM EDT Prescribed * Telephone Encounter - Britta Omalley - 10/22/2016 12:48 PM EDT Patient has colonoscopy is on 01/02/17. Can you sign order? documented in this encounter Plan of Treatment Not on file documented as of this encounter Visit Diagnoses Not on filedocumented in this encounter Care Teams Medical Unit Secretary Relationship Specialty Start Date End Date Armando Hermna MD PCP - General Internal Medicine 10/10/11 10/14/21 Destiny Negro MD PCP - General Family Practice 10/15/21 documented as of this encounter
--- OUTSIDE RECORDS SUMMARY | 2024-06-17 09:55 | XMS_ITS | Encounter Summary ---
Author Organization [facility] Address [address] [place] [address] Care Team Providers Care Straightener Name Role Phone Armando Herman MD Primary Care Provider Unavail able Destiny Negro MD Primary Care Provider Patrick gaming Encounter Details Date Type Department Care Team Description 07/08/2018 [facility] Medical Records [address] [place] [address] Abstract, Provider Social History Tobacco Use Types [...] on filedocumented in this encounter Care Teams Straightener Relationship Specialty Start Date End Date Armando Herman MD PCP - General Internal Medicine 10/10/11 10/14/21 Destiny Negro MD PCP - General Family Practice 10/15/21 documented as of this encounter
--- OUTSIDE RECORDS SUMMARY | 2024-06-17 09:55 | XMS_ITS | Encounter Summary ---
Author Organization [facility] Address [address] [place] [address] Care Team Providers Care Thermostat Mechanic Name Role Phone Destiny Negro MD Primary Care Provider [phone] Reason for Visit * Imaging (Routine) - Closed Specialty Diagnoses / Procedures Referred By Joesph buchanan Referred To Contact Radiology Diagnoses Solitary cyst of left breast Procedures MG Mammo Digital Diagnostic w Geo Left MG Mammo Digital Diagnostic Left Olivia Rashid, [facility] [address] [place] [address] Phone: tel: fax: [address] [address] Phone: tel: Referral ID Status Reason Start Date Expiration Date Visits Re quested Visits Authorized [id number] Closed 05/17/2024 05/17/2025 1 1 Encounter Details Date Type Department Care Team (Latest Contact Info) Description 05/24/2024 8:00 AM EST - 05/24/2024 11:59 PM EST Hospital Encounter [facility] at [address] [address] Solitary cyst of left breast Discharge Disposition: Home or Self Care Social History Tobacco Use Types Packs/Day Years [...] on file Sexual Orientation Not on file documented as of this encounter Last Filed Vital Signs Vital Sign Reading Time Taken Comments Blood Pressure - - Pulse - - Temperature - - Respiratory Rate - - Oxygen Saturation - - Inhaled Oxygen Concentration - - Weight 79.4 kg (175 lb) 05/24/2024 8:30 AM EST Height 157.5 cm (5' 2 ) 05/24/2024 8:30 AM EST Body Mass Index 32.01 05/24/2024 8:30 AM EST documented in this encounter Medications at Time of Discharge fexofenadine (MEME) 60 mg tablet Take by mouth. fluticasone propionate (FLONASE) 50 mcg/actuation nasal spray Administer 2 sprays into affected nostril(s). 06/13/2019 documented as of this encounter Discharge Disposition Disposition Code Departure Means Destination Home or Self Care documented in this encounter Plan of Treatment Not on file documented as of this encounter Procedures Procedure Name Priority Date/Time Associated Diagnosis Comments MG MAMMO DIGITAL DIAGNOSTIC W GEO LEFT Routine 05/24/2024 9:04 AM EST Solitary cyst of left breast documented in this encounter Results * MG Mammo Digital Diagnostic w Geo [...] Signed Date: 05/24/2024 09:10 ET Workstation ID: [id number] Transcribed By: Self Edit Transcribed Date: 05/24/2024 [...] Signed Date: 05/24/2024 09:10 ET Workstation ID: [id number] Transcribed By: Self Edit Transcribed Date: 05/24/2024 08:49 ET us Olivia Rashid CNLaura IMG BI PROCEDURES Final Resu lt documented in this encounter Visit Diagnoses Diagnosis Solitary cyst of left breast documented in this encounter Care Teams Thermostat Mechanic Relationship Specialty Start Date End Date Destiny Negro MD [address] [place] [address] PCP - General 10/15/21 documented as of this encounter
--- OUTSIDE RECORDS SUMMARY | 2024-06-17 09:55 | XMS_ITS | Encounter Summary ---
Author Organization [facility] Address [address] [place] [address] Care Team Providers Care Welding Supervisor Name Role Phone Armando Herman MD Primary Care Provider Unavail able Destiny Negro MD Primary Care Provider Patrick gaming Encounter Details Date Type Department Care Team Description 01/21/2018 [facility] Medical Records [address] [place] [address] Blanka Amos MD [address] [place] [address] Social History Tobacco Use Types Packs/Day Years [...] filedocumented in this encounter Care Teams Welding Supervisor Relationship Specialty Start Date End Date Armando Herman MD PCP - General Internal Medicine 10/10/11 10/14/21 Destiny Negro MD PCP - General Family Practice 10/15/21 documented as of this encounter
--- OUTSIDE RECORDS SUMMARY | 2024-06-17 09:55 | XMS_ITS | Encounter Summary ---
Author Organization [facility] Address [address] [place] [address] Care Team Providers Care Technical Operations Manager Name Role Phone Armando Herman MD Primary Care Provider Unavail able Destiny Negro MD Primary Care Provider Patrick gaming Encounter Details Date Type Department Care Team Description 07/19/2018 Orders Only Medical Records [address] [place] [address] Rigoberto Sol DPM Social History Tobacco Use Types Packs/Day Years [...] Procedure Name Priority Date/Time Associated Diagnosis Comments OUTSIDE PATHOLOGY Routine 07/09/2018 documented in this encounter Results * OUTSIDE PATHOLOGY (07/09/2018) Rigoberto Sol DPM OUTSIDE LAB documented in this encounter Visit Diagnoses Not on filedocumented in this encounter Care Teams Technical Operations Manager Relationship Specialty Start Date End Date Armando Herman MD PCP - General Internal Medicine 10/10/11 10/14/21 Destiny Negro MD PCP - General Family Practice 10/15/21 documented as of this encounter
--- OUTSIDE RECORDS SUMMARY | 2024-06-17 09:55 | XMS_ITS | Encounter Summary ---
Author Organization [facility] Address [address] [place] [address] Care Team Providers Care Bean Picker Name Role Phone Destiny Negro MD Primary Care Provider [phone] Reason for Referral * Imaging (Routine) - Closed Specialty Diagnoses / Procedures Referred By Joesph buchanan Referred To Contact Radiology Diagnoses Solitary cyst of left breast Procedures US Breast Limited Left Olivia Rashid CNM [address] [place] [address] Phone: tel: fax: [address] [address] Phone: tel: Referral ID Status Reason Start Date Expiration Date Visits Re quested Visits Authorized [id number] Closed 05/24/2024 05/24/2025 1 1 Reason for Visit * Imaging (Routine) - Closed Specialty Diagnoses / Procedures Referred By Joesph buchanan Referred To Contact Radiology Diagnoses Solitary cyst of left breast Procedures US Breast Limited Left Olivia Rashid CNM [address] [place] [address] Phone: tel: fax: [address] [address] Phone: tel: Referral ID Status Reason Start Date Expiration Date Visits Re quested Visits Authorized [id number] Closed 05/24/2024 05/24/2025 1 1 Encounter Details Date Type Department Care Team (Latest Contact Info) Description 05/24/2024 8:47 AM EST - 05/24/2024 11:59 PM EST Hospital Encounter [facility] Ultrasound [address] [place] [id number] Solitary cyst of left breast Discharge Disposition: [...] on file documented as of this encounter Medications at Time of Discharge [...] Name Priority Date/Time Associated Diagnosis Comments US BREAST LIMITED LEFT Routine 05/24/2024 9:09 AM EST Solitary cyst of left breast documented in this encounter Results * US Breast Limited Left (05/24/2024 9:09 [...] Signed Date: 05/24/2024 09:10 ET Workstation ID: [id number] Transcribed By: Self Edit Transcribed Date: 05/24/2024 [...] Signed Date: 05/24/2024 09:10 ET Workstation ID: [id number] Transcribed By: Self Edit Transcribed Date: 05/24/2024 08:49 ET us Olivia Rashid CNM IMG US PROCEDURES Final Resu lt documented in this encounter Visit Diagnoses Diagnosis Solitary cyst of left breast documented in this encounter Care Teams Bean Picker Relationship Specialty Start Date End Date Destiny Negro MD [address] [place] [address] PCP - General 10/15/21 documented as of this encounter
--- OUTSIDE RECORDS SUMMARY | 2024-06-17 09:55 | XMS_ITS | Encounter Summary ---
Author Organization [facility] Address [address] [place] [address] Care Team Providers Care Floatlight Powder Mixer Name Role Phone Destiny Negro MD Primary Care Provider [phone] Reason for Referral * Imaging (Routine) - Pending Review Specialty Diagnoses / Procedures Referred By Joesph buchanan Referred To Contact Radiology Diagnoses Benign breast cyst in female, left Procedures US Asp Breast Abscess/Hematoma/Bulla/Cy [facility] Olivia Rashid CNM [address] [place] [address] Phone: tel: fax: [facility] Referral ID Status Reason Start Date Expiration Date V isits Requested Visits Authorized [id number] Pending Review 05/24/2024 05/24/2025 1 1 Reason for Visit * Imaging (Routine) - Pending Review Specialty Diagnoses / Procedures Referred By Joesph buchanan Referred To Contact Radiology Diagnoses Benign breast cyst in female, left Procedures US Asp Breast Abscess/Hematoma/Bulla/Cy [facility] Olivia Rashid CNM [address] [place] [address] Phone: tel: fax: [facility] Referral ID Status Reason Start Date Expiration Date V isits Requested Visits Authorized [id number] Pending Review 05/24/2024 05/24/2025 1 1 Encounter Details Date Type Department Care Team (Latest Contact Info) Description 06/15/2024 8:52 AM EST - 06/15/2024 11:59 PM EST Hospital Encounter [facility] Ultrasound [address] [place] [address] Benign breast cyst in female, left Discharge Disposition: Home or Self Care Social [...] Date/Time Associated Diagnosis Comments US ASP BREAST ABSCESS/HEMATOMA/BU LLA/CYST LEFT Routine 06/15/2024 10:02 AM EST Benign breast cyst in female, left documented in this encounter Results * US Asp Breast Abscess/Hematoma/Bulla/Cyst Left [...] Signed Date: 06/15/2024 15:51 ET Workstation ID: [id number] Transcribed By: Self Edit Transcribed Date: 06/15/2024 [...] Signed Date: 06/15/2024 15:51 ET Workstation ID: [id number] Transcribed By: Self Edit Transcribed Date: 06/15/2024 15:39 ET us Olivia Rashid CNM IMG US PROCEDURES Final Resu lt documented in this encounter Visit Diagnoses Diagnosis Benign breast cyst in female, left documented in this encounter Administered Medications Inactive Administered Medications - up to 3 most recent administrations Medication Order MAR Action Action Date Dose Rate Site lidocaine (XYLOCAINE) 1 % injection 5 mL 5 mL, intradermal, Once in imaging, Starting on Thu06/15/24 at 1002, For 1 dose Given 06/15/2024 10:04 AM EST 5 mL documented in this encounter Orders Medications Ordered That Sky ht Not Have Been Administered Count Last Ordered Date First Ordered Date lidocaine (XYLOCAINE) 1 % injection 5 mL 1 06/15/2024 documented in this encounter Care Teams Floatlight Powder Mixer Relationship Specialty Start Date End Date Destiny Negro MD [address] [place] [address] PCP - General 10/15/21 documented as of this encounter
--- OUTSIDE RECORDS SUMMARY | 2024-06-17 09:55 | XMS_ITS | Encounter Summary ---
Author Organization [facility] Address [address] [place] [address] Care Team Providers Care Director Of Guidance Name Role Phone Destiny Negro MD Primary Care Provider Patrick gaming Encounter Details Date Type Department Care Team Description 09/12/2022 Orders Only OBGYN - [facility] [address] [address] Olivia Rashid, [address] [address] Breast pain in female; Breast lump on left side at 4 o'clock position Social History Tobacco Use Types Packs/Day Years [...] file Not on file Not on file COVID-19 Exposure Response Date Recorded In the last 10 days, have mya guillory been in contact with someone who was confirmed or suspected to have Coronavirus/COVID-19? No / Unsure 09/05/2022 9:58 AM EDT documented as of this encounter Plan of Treatment Not on file documented as of this encounter Procedures Procedure Name Priority Date/Time Associated Diagnosis Comments DIAGNOSTIC MAMMOGRAPHY INCLUDING CAD BILATERAL Routine 09/12/2022 Breast pain in female Breast lump on left side at 4 o'clock position SONO BREAST, LIMITED Routine 09/12/2022 Breast pain in female Breast lump on left side at 4 o'clock position documented in this encounter Results * DIAGNOSTIC MAMMOGRAPHY INCLUDING CAD BILATERAL (09/12/2022) Olivia Rachid CNM MAMMOGRAPHY * SONO BREAST, LIMITED (09/12/2022) Olivia Rachid CNM MAMMOGRAPHY documented in this encounter Visit Diagnoses Diagnosis Breast pain in female Mastodynia Breast lump on left side at 4 o'clock position Lump or mass in breast documented in this encounter Care Teams Director Of Guidance Relationship Specialty Start Date End Date Destiny Negro MD PCP - General Family Practice 10/15/21 documented as of this encounter
== END 2024-06-17 09:25 | disposition home or self-care (01) ==
PROVIDERS: PCP Internal Medicine; Visit Provider Physician Assistant
DX: M23.91 Unspecified internal derangement of right knee (principal)
CPT/HCPCS: 20610

== ENCOUNTER → 2024-06-17 09:11 | Outpatient (BNVA) | payer OTHER, SELFPAY | PROVIDERS: PCP Internal Medicine; Visit Provider Physician Assistant | DX: M23.91 Unspecified internal derangement of right knee (principal) | CPT/HCPCS: 20610; J7323 ==

== ENCOUNTER 2024-06-24 08:44 | Outpatient (AMB) | payer OTHER, SELFPAY ==
--- NOTE | 2024-06-24 08:49 | MHC.OFFVIS ---
Intake Visit Reasons: right knee euflexxa gel injection #2 Intake Note: Mely is a 58 year old female who presents today for her right knee Euflexxa gel injection #2. Patient hasn't noticed any changes in her pain with her first injection. Allergies morphine Allergy (Unknown, Verified 06/24/24 08:57) Hives Sulfa (Sulfonamide Antibiotics) Allergy (Unknown, Verified 06/24/24 08:57) Anaphylaxis HPI HPI right knee euflexxa gel injection #2: Details: Ms. Salcido is a 58-year-old female who presents to the office today for right knee Euflexxa #2. [facility] Medical History No pertinent past medical history Surgical History Hx of section History of bunionectomy of left great toe Hx of abdominoplasty H/O thumb surgery H/O left knee surgery Social History Patient Tobacco Use Status: Former Tobacco user Current occupational status: employed Current occupation: Administrative Review of Systems Const All systems reviewed & are unremarkable except as noted in HPI and below Physical Exam Const General: cooperative, healthy appearing and no acute distress Resp Effort & Inspection: normal respiratory effort and able to speak in complete sentences Cardio Rate: regular rate Peripheral pulses: Peripheral pulses 2+ throughout GI Palpation (GI): Soft to palpation Skin Lesions: no lesions Rashes: no rashes Extrem Other: Right knee: Normal to inspection. No ecchymosis, erythema, or joint effusion. Pain is located in the anterior knee and runs across medial and lateral joint lines. No tenderness to palpation along the medial or lateral joint lines. Full knee extension and flexion. Crepitus felt with ROM. NVI. Office Procedures AMB Joint Injection/Aspiration Joint Injection/Aspiration Primary Site: right knee (Euflexxa #2) Prep: site was prepped using aseptic technique, ethochloride spray was applied and injection warnings given Approach Used: anterolateral Procedure: The patient tolerated the procedure well, but had some pain with the injection and there was some relief with the local anesthesia Coding 22458 - Large joint Procedure code (CPT) selection complete Assessment & Plan Assessment & Plan (1) Internal derangement of right knee: Code(s): M23.91 - Unspecified internal derangement of right knee Category: Medical Plan The patient was offered the Euflexxa #2 injection in the right knee. The patient was explained the risks, benefits, and alternatives to receiving this injection. After receiving consent for the injection, the patient had the procedure done while in the office today. The patient tolerated the procedure well with no complications. Follow-up will be 1 week for Euflexxa #3., or sooner if needed Coding Level of Care Code Procedure Only Diagnoses Internal derangement of right knee M23.91 CPT Codes Coding - 19968 Large joint: 03603 - Large joint ([id number])
--- OUTSIDE RECORDS SUMMARY | 2024-06-24 09:00 | XMS_ITS | Encounter Summary ---
Author Organization [facility] Address [address] [place] [address] Care Team Providers Care Supervisor Dock Name Role Phone Destiny Negro MD Primary Care Provider [phone] Reason for Visit * Imaging (Routine) - Closed Specialty Diagnoses / Procedures Referred By Joesph buchanan Referred To Contact Radiology Diagnoses Solitary cyst of left breast Procedures MG Mammo Digital Diagnostic w Geo Left MG Mammo Digital Diagnostic Left Olivia Rashid, [facility] [address] [place] [address] Phone: tel: fax: [address] [address] Phone: tel: Referral ID Status Reason Start Date Expiration Date Visits Re quested Visits Authorized [id number] Closed 05/17/2024 05/17/2025 1 1 Encounter Details Date Type Department Care Team (Latest Contact Info) Description 05/24/2024 8:00 AM EST - 05/24/2024 11:59 PM EST Hospital [facility] at [address] [address] Solitary cyst of left breast [...] Signed Date: 05/24/2024 09:10 ET Workstation ID: [id number] Transcribed By: Self Edit Transcribed Date: 05/24/2024 [...] Signed Date: 05/24/2024 09:10 ET Workstation ID: [id number] Transcribed By: Self Edit Transcribed Date: 05/24/2024 08:49 ET us Olivia Rashid CNLaura IMG BI PROCEDURES Final Resu lt documented in this encounter Visit Diagnoses Diagnosis Solitary cyst of left breast documented in this encounter Care Teams Supervisor Dock Relationship Specialty Start Date End Date Destiny Negro MD [address] [facility] [place] [address] PCP - General 10/15/21 documented as of this encounter
--- OUTSIDE RECORDS SUMMARY | 2024-06-24 09:00 | XMS_ITS | Encounter Summary ---
Author Organization [facility] Address [address] [place] [address] Care Team Providers Care Scientific Laboratory Supervisor Name Role Phone Destiny Negro MD Primary Care Provider [phone] Reason for Referral * Imaging (Routine) - Pending Review Specialty Diagnoses / Procedures Referred By Joesph buchanan Referred To Contact Radiology Diagnoses Benign breast cyst in female, left Procedures US Asp Breast Abscess/Hematoma/Bulla/Cy [facility] Olivia Rashid CNM [address] [place] [address] Phone: tel: fax: [facility] Referral ID Status Reason Start Date Expiration Date V isits Requested Visits Authorized [id number] Pending Review 05/24/2024 05/24/2025 1 1 Reason for Visit * Imaging (Routine) - Pending Review Specialty Diagnoses / Procedures Referred By Joesph buchanan Referred To Contact Radiology Diagnoses Benign breast cyst in female, left Procedures US Asp Breast Abscess/Hematoma/Bulla/Cy [facility] Olivia Rashid CNM [address] [place] [address] Phone: tel: fax: [facility] Referral ID Status Reason Start Date Expiration Date V isits Requested Visits Authorized [id number] Pending Review 05/24/2024 05/24/2025 1 1 Encounter Details Date Type Department Care Team (Latest Contact Info) Description 06/15/2024 8:52 AM EST - 06/15/2024 11:59 PM EST Hospital Encounter [facility] Ultrasound [address] [place] [address] Benign breast cyst in female, [...] Signed Date: 06/15/2024 15:51 ET Workstation ID: [id number] Transcribed By: Self Edit Transcribed Date: 06/15/2024 [...] Signed Date: 06/15/2024 15:51 ET Workstation ID: [id number] Transcribed By: Self Edit Transcribed Date: 06/15/2024 [...] 06/15/2024 documented in this encounter Care Teams Scientific Laboratory Supervisor Relationship Specialty Start Date End Date Destiny Negro MD [address] [place] [address] PCP - General 10/15/21 documented as of this encounter
--- OUTSIDE RECORDS SUMMARY | 2024-06-24 09:00 | XMS_ITS | Encounter Summary ---
Author Organization [facility] Address [address] [place] [address] Care Team Providers Care Bass String Winder Name Role Phone Destiny Negro MD Primary Care Provider [phone] Reason for Referral * Imaging (Routine) - Closed Specialty Diagnoses / Procedures Referred By Joesph buchanan Referred To Contact Radiology Diagnoses Solitary cyst of left breast Procedures US Breast Limited Left Olivia Rashid CNM [address] [place] [address] Phone: tel: fax: [address] [address] Phone: tel: Referral ID Status Reason Start Date Expiration Date Visits Re quested Visits Authorized [id number] Closed 05/24/2024 05/24/2025 1 1 Reason for Visit * Imaging (Routine) - Closed Specialty Diagnoses / Procedures Referred By Joesph buchanan Referred To Contact Radiology Diagnoses Solitary cyst of left breast Procedures US Breast Limited Left Olivia Rashid CNM [address] [place] [address] Phone: tel: fax: [address] [address] Phone: tel: Referral ID Status Reason Start Date Expiration Date Visits Re quested Visits Authorized [id number] Closed 05/24/2024 05/24/2025 1 1 Encounter Details Date Type Department Care Team (Latest Contact Info) Description 05/24/2024 8:47 AM EST - 05/24/2024 11:59 PM EST Hospital Encounter [facility] Ultrasound [address] [place] [id number] Solitary cyst of left breast Discharge Disposition: [...] Signed Date: 05/24/2024 09:10 ET Workstation ID: [id number] Transcribed By: Self Edit Transcribed Date: 05/24/2024 [...] Signed Date: 05/24/2024 09:10 ET Workstation ID: [id number] Transcribed By: Self Edit Transcribed Date: 05/24/2024 08:49 ET us Olivia Rashid CNM IMG US PROCEDURES Final Resu lt documented in this encounter Visit Diagnoses Diagnosis Solitary cyst of left breast documented in this encounter Care Teams Bass String Winder Relationship Specialty Start Date End Date Destiny Negro MD [address] [place] [id number] PCP - General 10/15/21 documented as of this encounter
--- OUTSIDE RECORDS SUMMARY | 2024-06-24 09:00 | XMS_ITS | Clinical Summary ---
[facility] Address [address] [place] [phone] Phone Care Team Providers Care Senior Consumer Insights Consultant Name Role Phone Destiny Negro MD Primary Care Provider [phone] Allergies Active Allergy Reactions Criticality Noted Date [...] - 06/15/2024 11:59 PM EST Hospital Encounter [facility] Ultrasound [address] [place] [address] Benign breast cyst in female, left Discharge Disposition: Home or Self Care 05/24/2024 8:47 AM EST - 05/24/2024 11:59 PM EST Hospital Encounter [facility] Ultrasound [address] [place] [address] Solitary cyst of left breast Discharge Disposition: Home or Self Care 05/24/2024 8:00 AM EST - 05/24/2024 11:59 PM EST Hospital Encounter [facility] [address] [place] [address] Solitary cyst of left breast Discharge Disposition: Home or Self Care 05/17/2024 1:30 PM EST Office Visit [facility] [address] [place] [id number] Olivia Rashid, MIMI Solitary cyst of left breast (Primary Dx) from Last 3 Months Surgical History Surgery Date Site/Laterality Comments BELT ABDOMINOPLASTY PROCEDURE: HISTORICAL TUMMY TUCK SECTION 12/31/1999 PROCEDURE: HISTORICAL KNEE ARTHROSCOPY W/ MENISCAL REPAIR 2015 Left PROCEDURE: LA ARTHROSCOPY KNEE W/MENISCUS RPR MEDIAL/LATERAL Medical History [...] Signed Date: 06/15/2024 15:51 ET Workstation ID: [id number] Transcribed By: Self Edit Transcribed Date: 06/15/2024 [...] Signed Date: 06/15/2024 15:51 ET Workstation ID: [id number] Transcribed By: Self Edit Transcribed Date: 06/15/2024 [...] Signed Date: 05/24/2024 09:10 ET Workstation ID: [id number] Transcribed By: Self Edit Transcribed Date: 05/24/2024 [...] Signed Date: 05/24/2024 09:10 ET Workstation ID: [id number] Transcribed By: Self Edit Transcribed Date: 05/24/2024 [...] Signed Date: 05/24/2024 09:10 ET Workstation ID: [id number] Transcribed By: Self Edit Transcribed Date: 05/24/2024 [...] Signed Date: 05/24/2024 09:10 ET Workstation ID: [id number] Transcribed By: Self Edit Transcribed Date: 05/24/2024 08:49 ET us Olivia Rashid CNM IMG BI PROCEDURES Final Resu lt * Pap smear (10/26/2017) 10/26/2017 Narrative HISTORICAL TESTING LAB RESULTING AGENCY - 10/28/2017 5:19 PM EDT [id number] THINPREP PAP, IMAGED: NEGATIVE FOR SQUAMOUS INTRAEPITHELIAL [...] Most Recently Relevant to Health Maintenance Insurance [facility] [employer] [place] [employer] [id number] Care Teams Senior Consumer Insights Consultant Relationship Specialty Start Date End Date Destiny Negro MD [address] [place] [address] PCP - General 10/15/21
== END 2024-06-24 09:02 | disposition home or self-care (01) ==
LOC: HO.HOS 08:45
PROVIDERS: PCP Internal Medicine; Visit Provider Physician Assistant
DX: M23.91 Unspecified internal derangement of right knee (principal)
CPT/HCPCS: 20610

== ENCOUNTER → 2024-06-24 08:44 | Outpatient (BNVA) | payer OTHER, SELFPAY | PROVIDERS: PCP Internal Medicine; Visit Provider Physician Assistant | DX: M23.91 Unspecified internal derangement of right knee (principal) | CPT/HCPCS: 20610; J7323 ==

== ENCOUNTER 2024-07-01 09:00 | Outpatient (AMB) | payer OTHER, SELFPAY ==
--- NOTE | 2024-07-01 09:06 | A.OFFVIS_ITS ---
Intake Visit Reasons: right knee Euflexxa gel injection #3 Intake Note: Mely is a 58 year old female who presents today for her right knee Euflexxa gel injection #3. Patient states she is feeling better, she notices her swelling has gone down. Allergies morphine Allergy (Unknown, Verified 07/01/24 09:07) Hives Sulfa (Sulfonamide Antibiotics) Allergy (Unknown, Verified 07/01/24 09:07) Anaphylaxis HPI HPI right knee Euflexxa gel injection #3: Details: Ms. Salcido is a 58-year-old female who presents to the office today for right knee Euflexxa #3. [facility] Medical History No pertinent past medical history Surgical History Hx of section History of bunionectomy of left great toe Hx of abdominoplasty H/O thumb surgery H/O left knee surgery Social History Patient Tobacco Use Status: Former Tobacco user Current occupational status: employed Current occupation: Administrative Review of Systems Const All systems reviewed & are unremarkable except as noted in HPI and below Physical Exam Const General: cooperative, healthy appearing and no acute distress Resp Effort & Inspection: normal respiratory effort and able to speak in complete sentences Cardio Rate: regular rate Peripheral pulses: Peripheral pulses 2+ throughout GI Palpation (GI): Soft to palpation Skin Lesions: no lesions Rashes: no rashes Extrem Other: Right knee: Normal to inspection. No ecchymosis, erythema, or joint effusion. Pain is located in the anterior knee and runs across medial and lateral joint lines. No tenderness to palpation along the medial or lateral joint lines. Full knee extension and flexion. Crepitus felt with ROM. NVI. Office Procedures AMB Joint Injection/Aspiration Joint Injection/Aspiration Primary Site: right knee Prep: site was prepped using aseptic technique, ethochloride spray was applied and injection warnings given Injected: in the joint (Euflexxa #3) Procedure: The patient tolerated the procedure well, but had some pain with the injection and there was some relief with the local anesthesia Coding 52698 - Large joint Procedure code (CPT) selection complete Assessment & Plan Assessment & Plan (1) Internal derangement of right knee: Code(s): M23.91 - Unspecified internal derangement of right knee Category: Medical Plan The patient was offered the Euflexxa #3 injection in the right knee. The patient was explained the risks, benefits, and alternatives to receiving this injection. After receiving consent for the injection, the patient had the procedure done while in the office today. The patient tolerated the procedure well with no complications. Patient will follow-up p.r.n., sooner if needed. Coding Level of Care Code Procedure Only Diagnoses Internal derangement of right knee M23.91 CPT Codes Coding - 22256 Large joint: 30109 - Large joint ([id number])
== END 2024-07-01 09:23 | disposition home or self-care (01) ==
LOC: HO.HOS 09:01
PROVIDERS: PCP Internal Medicine; Visit Provider Physician Assistant
DX: M23.91 Unspecified internal derangement of right knee (principal)
CPT/HCPCS: 20610

== ENCOUNTER → 2024-07-01 09:00 | Outpatient (BNVA) | payer OTHER, SELFPAY | PROVIDERS: PCP Internal Medicine; Visit Provider Physician Assistant | DX: M23.91 Unspecified internal derangement of right knee (principal) | CPT/HCPCS: 20610; J7323 ==